=== PATIENT | male | born 1930 | race Caucasian/White ===

== ENCOUNTER 2018-03-29 08:45 | Inpatient (IN) ==
--- OUTSIDE RECORDS SUMMARY | 2018-03-29 09:09 | External Medical Summary | Summary of Care ---
:03/29/1948 Author Name Blaise Escoto M.D. Address [address] [facility] Unavailable [place], [place] [id number] Care Team Providers Name Role Phone Pavel Myers M.D. Unavailable Unavailable Naman Ngo, Freddy Haddad Unavailable Unavailable Pavel Myers Primary Care Provider Unavailable Unavailable Unavailable Unavailable Functional Status Functional Status Health Issues Name Dates Details Functional status health issues are not documented Status: Cognitive Status Health Issues Name Dates Details Cognitive status health issues are not documented Status: Problems Name Dates Details Encounter for screening for malignant neoplasm of prostate (V76.44, Z12.5) Status: Active Chest tightness or pressure (786.59, R07.89) Status: Active Blood in urine (599.70, R31.9) Status: Active Hyperkalemia (276.7, E87.5) Status: Active Depression (311, F32.9) Status: Active Myalgia and myositis (729.1, M79.1) Status: Active Orthostasis (458.0, I95.1) Status: Active Welcome to Medicare preventive visit (V70.0, Z00.00) Status: Active Needs flu shot (V04.81, Z23) Status: Active Dizziness (780.4, R42) Status: Active 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 Quantity: 30 Refills: 0 Pavel Myers M.D. Started ActiveFish Oil 1000 MG Oral Capsule TAKE 1 CAPSULE DAILY. Quantity: 90 Refills: 0 Pavel Myers M.D. Started ActiveAtorvastatin Calcium 80 MG Oral Tablet Take 1 tablet by mouth at bedtime Quantity: 90 Refills: 0 Pavel Myers M.D. Started 04-Oct-2009 ActiveZetia 10 MG Oral Tablet take 1 tablet by mouth every day Quantity: 90 Refills: 3 Freddy Florence M.D. Started 01-Jun-2009 ActiveLisinopril 20 MG Oral Tablet take one tablet by mouth every day Quantity: 14 Refills: 0 Pavel Myers M.D. Started 21-Sep-2009 ActiveNabumetone 500 MG Oral Tablet take 1 tablet by mouth every day in the morning Quantity: 90 Refills: 0 Pavel Myers M.D. Started 04-Sep-2011 ActiveCitalopram Hydrobromide 20 MG Oral Tablet TAKE 1 TABLET BY MOUTH DAILY Quantity: 90 Refills: 2 Pavel Myers M.D. Started 24-May-2012 ActiveMetoprolol Tartrate 25 MG Oral Tablet TAKE ONE-HALF (1/2) TABLET DAILY IN THE MORNING Quantity: 90 Refills: 1 Pavel Myers M.D. Started 13-Jun-2012 ActiveClopidogrel Bisulfate 75 MG Oral Tablet Take 1 tablet daily Quantity: 90 Refills: 1 Pavel Myers M.D. Started 10-Feb-2013 Active Allergies and Adverse Reactions Name Dates Details No Known Drug Allergies Status: Active Procedures Procedure Dates Details History of Cath Stent Placement Procedures not documented Immunization Name Dates Details Fluzone High-Dose Intramuscular Suspension Administered on:16-Jun-2014 Lot #: [id number] Adacel 5-2-15.5 LF-MCG/0.5 Intramuscular Suspension Administered on:2013 Lot #: [id number] Prevnar 13 Intramuscular Suspension Administered on:16-Jun-2014 Lot #: [id number] Family History Unknown Family Member Name Dates Details Family history of Family History Reviewed Comments: Family History Status: Active Social History Name Dates Details Tobacco use (305.1, Z72.0) Comments: smokes 1/2 ppd Smoking StatusCurrent every day smoker Vital Signs Date Test Result Details No Known Vitals to report Results Date Description Value Details Results not documented Plan of Care Planned Observations Name Dates Details Planned Goals not documented Goal Planned Encounters Appointment; Provider: Freddy Florence On 13:30 Instructions Instructions not documented Encounters Appointment; Blaise Escoto On 26-Apr-2015 Encounter Diagnosis: Problem not documented 10:00 Appointment; Leta Todd On 26-Apr-2015 Encounter Diagnosis: Problem not documented 09:30 Appointment; Freddy Florence On Encounter Diagnosis: Problem not documented 15:00 Appointment; Freddy Florence On Encounter Diagnosis: Problem not documented 14:15 Appointment; Pavel Myers On Encounter Diagnosis: Problem not documented 09:30 Appointment; Pavel Myers On 22-Sep-2014 Encounter Diagnosis: Problem not documented 10:15 Appointment; Pavel Myers On 16-Jun-2014 Encounter Diagnosis: Problem not documented 08:45 Appointment; Pavel Myers On 22-May-2014 Encounter Diagnosis: Problem not documented 10:45 Appointment; Pavel Myers On 15-May-2014 Encounter Diagnosis: Problem not documented 11:00 Appointment; Freddy Florence On Encounter Diagnosis: Problem not documented 13:30 Appointment; Pavel Myers On 17-Feb-2014 Encounter Diagnosis: Problem not documented 09:00 Appointment; Pavel Myers On 18-Aug-2013 Encounter Diagnosis: Problem not documented 08:15
--- OUTSIDE RECORDS SUMMARY | 2018-03-29 09:09 | External Medical Summary | Summary of Care ---
:03/29/1948 Author Name Pavel Myers M.D. 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 Started 21-Sep-2009 ActiveCitalopram Hydrobromide 20 MG Oral Tablet TAKE 1 TABLET BY MOUTH DAILY Quantity: 90 Refills: 2 Pavel Myers M.D. Started 24-May-2012 ActiveMetoprolol Tartrate 25 MG Oral Tablet TAKE ONE-HALF (1/2) TABLET DAILY IN THE MORNING Quantity: 90 Refills: 1 Pavel Myers M.D. Started 13-Jun-2012 ActiveClopidogrel Bisulfate 75 MG Oral Tablet Take 1 tablet daily Quantity: 90 Refills: 1 Pavel Myers M.D. Started 10-Feb-2013 ActiveNabumetone 500 MG Oral Tablet take 1 tablet by mouth every day in the morning Quantity: 90 Refills: 0 Pavel Myers M.D. Started 04-Sep-2011 Active Allergies and Adverse Reactions Name Dates Details No Known Drug Allergies Status: Active Procedures Procedure Dates Details History of Cath Stent Placement Procedures not documented Immunization Name Dates Details Fluzone High-Dose Intramuscular Suspension Administered on:16-Jun-2014 Lot #: [id number] Adacel 5-2-15.5 LF-MCG/0.5 Intramuscular Suspension Administered on:2013 Lot #: [id number] Prevnar 13 Intramuscular Suspension Administered on:16-Jun-2014 Lot #: [id number] Family History Unknown Family Member Name Dates Details Family history of Family History Reviewed Comments: Family History Status: Active Social History Name Dates Details Tobacco use (305.1, Z72.0) Comments: smokes 1/2 ppd Smoking StatusCurrent every day smoker Vital Signs Date Test Result Details No Known Vitals to report Results Date Description Value Details 26-Apr-2015 10:55 Colonoscopy Abnormal- Polyps (Better) Range: 0 Plan of Care Planned Observations Name Dates [...] Encounter Diagnosis: Problem not documented 09:00 Appointment; Pavle Myers On 18-Aug-2013 Encounter Diagnosis: Problem not documented 08:15
--- OUTSIDE RECORDS SUMMARY | 2018-03-29 09:09 | External Medical Summary | Summary of Care ---
:03/29/1948 Author Name Pavel Myers M.D. Address Unavailable Unavailable , Care Team Providers Name Role Phone Pavel Myers M.D. Unavailable Unavailable Freddy Florence M.D. Unavailable Unavailable Pavel Myers Unavailable Unavailable Unavailable Unavailable Unavailable Functional Status Functional [...] (311, F32.9) Status: Active Myalgia and myositis (729.1) Status: Active Orthostasis (458.0, I95.1) Status: Active Welcome to Medicare preventive visit (V70.0, Z00.00) Status: Active Needs flu shot (V04.81, Z23) Status: Active Peripheral arterial disease (443.9, I73.9) Status: Active CTS (carpal tunnel syndrome) (354.0, G56.00) Status: Active Encounter for screening colonoscopy (V76.51, Z12.11) Status: Active Colon polyps (211.3, K63.5) Status: Active Lesion of right parietal lobe of brain (348.89, G93.9) Status: Active Acute confusion (293.0, R41.0) Status: Active 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, I25.10) Status: Active Dizziness (780.4, R42) Status: Active 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 Quantity: 30 Refills: 0 Pavel Myers M.D. Start Active Fish Oil 1000 MG Oral Capsule TAKE 1 CAPSULE DAILY. Quantity: 90 Refills: 0 Pavel Myers M.D. Start Active Atorvastatin Calcium 80 MG Oral Tablet Take 1 tablet at bedtime Quantity: 90 Refills: 3 Pavel Myers M.D. Start 04-Oct-2009 Active Zetia 10 MG Oral Tablet take 1 tablet by mouth every day Quantity: 30 Refills: 0 Freddy Florence M.D. Start 01-Jun-2009 Active Lisinopril 20 MG Oral Tablet TAKE 1 TABLET EVERY DAY Quantity: 90 Refills: 0 Pavel Myers M.D. 19-Sep-2016 Active Citalopram Hydrobromide 20 MG Oral Tablet Take 1 tablet daily Quantity: 90 Refills: 0 Pavel Myers M.D. 19-Sep-2016 Active Metoprolol Tartrate 25 MG Oral Tablet TAKE ONE-HALF (1/2) TABLET DAILY IN THE MORNING Quantity: 90 Refills: 0 Pavel Myers M.D. 05-Aug-2016 Active Clopidogrel Bisulfate 75 MG Oral Tablet Take 1 tablet daily Quantity: 90 Refills: 2 Pavel Myers M.D. Start 07-Sep-2016 Active Meloxicam 7.5 MG Oral Tablet TAKE 1 TABLET TWICE DAILY WITH FOOD. Quantity: 10 Refills: 0 Pavel Myers M.D. Start 03-Jun-2015 Active Donepezil HCl - 10 MG Oral Tablet TAKE 1 TABLET DAILY DIRECTED. Quantity: 90 Refills: 3 Pavel Myers M.D. 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) Status: Resolved History of stroke (V12.54, Z86.73) Status: Resolved Procedures Procedure Dates Details History of Cath Stent Placement Procedures not documented Immunization Name Dates Details Fluzone High-Dose SUSP on: 16-Jun-2014 Lot #: [id number] Adacel 5-2-15.5 LF-MCG/0.5 Intramuscular Suspension on: 16-Jun-2014 Lot #: [id number] Prevnar 13 Intramuscular Suspension on: 16-Jun-2014 Lot #: [id number] Family History Unknown Family Member Name Dates Details Family history of Family History Reviewed Comments: Family History Status: Active Mother Name Dates Details Family history of rheumatoid arthritis (V17.7, Z82.61) Status: Active Father Name Dates Details Family history of cerebrovascular accident (CVA) (V17.1, Z82.3) Status: Active Family history of Carotid artery calcification (433.10, I65.29) Status: Active Social History Name Dates Details Tobacco use (305.1, Z72.0) Comments: smokes 1/2 ppd Status: Active Smoking Status Name Dates Details Current every day smoker Vital Signs Date Test Result Details 03-Oct-2016 09:55 BP Systolic 102 mm[Hg] Status: Comments: Location: ; Position: BP Diastolic 60 mm[Hg] Status: Comments: Location: ; Position: Height 70 in Status: Weight 153 lb Status: Body Mass Index Calculated 21.95 kg/m2 Status: Body Surface Area Calculated 1.86 m2 Status: Results Date Description Value Details 03-Oct-2016 09:45 CBC w/ Auto Diff 7150 Comments: Fastin hours WBC 7.2 K/uL Range: 4.5-11.0 RBC 5.01 mil/uL Range: 4.20-5.40 HGB 14.3 g/dL Range: 14.0-18.0 HCT 42.8 % Range: 42.0-53.0 MCV 85.5 fL Range: 80.0-99.0 MCH 28.5 pg Range: 27.3-32.5 MCHC 33.3 % Range: 32.0-36.0 RDW 14.7 % Range: 11.6-14.8 PLATELETS 253 K/uL Range: 150-400 MPV 7.1 fL Range: 6.0-11.0 %NEUTRO 60.1 % Range: 37.0-80.0 %LYMPHS 30.0 % Range: 13.0-50.0 %MONO 5.2 % Range: 0.0-12.0 %EOS 2.5 % Range: 0.0-7.0 %BASO 0.3 % Range: 0.0-2.5 %MAGED 1.8 % Range: 0.0-5.0 NEUTRO 4.3 K/uL Range: 2.0-6.9 LYMPHS 2.2 K/uL Range: 0.6-3.4 MONOS 0.4 K/uL Range: 0.0-0.9 EOS 0.2 K/uL Range: 0.0-0.7 BASO 0.0 K/uL Range: 0.0-0.2 10:16 Urinalysis, Reflex to Microscopic or Culture PRN Comments: Fastin hours 8005 pH 6.0 Range: 5.0-7.5 SP GRAVITY 1.025 Range: 1.010-1.030 APPEARANCE CLEAR Range: Clear COLOR YELLOW Range: Straw-Yellow PROTEIN NEGATIVE mg/dL Range: Negative-Trace GLUCOSE NEGATIVE mg/dL Range: Negative KETONE NEGATIVE mg/dL Range: Negative BILIRUB NEGATIVE Range: Negative BLOOD NEGATIVE Range: Negative UROBIL 0.2 EU/dL Range: 0.2-1.0 NITRITE NEGATIVE Range: Negative LEUK TRACE (Abnormal) Range: Negative 10:16 Urine Microscopic UMIC Comments: Fastin hours WBC 3-5 /HPF Range: 0-5 BACTERIA Trace /HPF Range: Negative-Trace U YEAST Present (Abnormal) Range: Absent 10:30 Comprehensive Metabolic Panel 1212 Comments: Fastin hours SODIUM 139 mmol/L Range: 133-144 POTASSIUM 4.7 mmol/L Range: 3.5-5.1 CHLORIDE 104 mmol/L Range: 98-110 CARBON DIOXIDE 25.0 mmol/L Range: 23.0-33.0 ANION GAP 10 mmol/L Range: 6-16 BUN 20 mg/dL (Above high Range: 7-18 threshold) CREATININE, SERUM 1.19 mg/dL Range: 0.70-1.30 BUN:CREATININE RATIO 17 EST GFR, >60 ml/min Range: >60 EST GFR, NON-AFR CITIZEN OF [place] >60 ml/min Range: >60 Comments: EST GFR is reported in ml/min per 1.73 m2 of body surface area. ----- GLUCOSE 97 mg/dL Range: 70-100 ALK PHOSPHATASE 60 U/L Range: 46-116 TOTAL BILIRUBIN 0.40 mg/dL Range: 0.20-1.00 AST 19 U/L Range: 8-35 ALT 28 U/L Range: 16-63 ALBUMIN 3.8 g/dL Range: 3.4-5.0 TOTAL PROTEIN 7.8 g/dL Range: 6.4-8.2 A/G RATIO 1.0 units Range: 1.0-1.8 CALCIUM 8.9 mg/dL Range: 8.5-10.1 10:30 LIPID PROFILE 1184 Comments: Fastin hours CHOLESTEROL 108 mg/dL Range: <200 TRIGLYCERIDES 40 mg/dL Range: 30-200 HDL Cholesterol 54 mg/dL Range: >39 NON HDL CHOLESTEROL 54 CARDIAC RSK FACTOR 2.0 units (Below low threshold) Range: 4.4-5.0 LDL - CALCULATED 46 mg/dL Range: 0-130 10:35 FREE T4 3604 Comments: Fastin hours FREE T4 1.25 ng/dL Range: 0.80-1.67 10:35 THYROID STIM. HORMONE 3602 Comments: Fastin hours THYROID STIM. HORMONE 3.274 uIU/mL Range: 0.550-4.780 Comments: No established reference ranges for infants and children &lt ;2 years of age----- 10:35 PSA ( PROSTATE SPECIFIC ANTIGEN) 3100 Comments: Fastin hours PROSTATE SPECIFIC ANTIGEN 0.590 ng/mL Range: 0.000-4.000 Plan of Care Name Dates Details Planned Observations Planned Goals not documented Planned Encounters Appointment; Provider: Freddy Florence M.D. On 07-Feb-2017 14:00 Appointment; Provider: Pavel Myers M.D. On 22-Nov-2016 10:30 Interventions Provided Medication ChangesAtorvastatin Calcium 80 MG Oral Tablet - RenewDonepezil HCl - 10 MG Oral Tablet - Renew Instructions Name Dates Details Instructions not documented Encounters Appointment; Freddy Florence M.D. On 27-Jul-2016 Encounter Diagnosis: Problem not documented 14:45 Appointment; Leland Sherman P.A. On Encounter Diagnosis: Problem not documented 11:00 Appointment; Freddy Florence M.D. On Encounter Diagnosis: Problem not documented 14:45 Appointment; Pavel Myers M.D. On Encounter Diagnosis: Problem not documented 16:00 Appointment; Pavel Myers M.D. On 21-Sep-2015 Encounter Diagnosis: Problem not documented 08:30 Appointment; Abhay Delaney M.D. On 14-Sep-2015 Encounter Diagnosis: Problem not documented 13:30 Appointment; Abhay Delaney M.D. On 09-Sep-2015 Encounter Diagnosis: Problem not documented 13:30 Appointment; Abhay Delaney M.D. On 24-Aug-2015 Encounter Diagnosis: Problem not documented 16:00 Appointment; Pavel Myers M.D. On 24-Aug-2015 Encounter Diagnosis: Problem not documented 09:00 Appointment; Blaise Escoto M.D. On 26-Apr-2015 Encounter Diagnosis: Problem not documented 10:00 Appointment; Leta Todd On 26-Apr-2015 Encounter Diagnosis: Problem not documented 09:30 Appointment; Freddy Florence M.D. On Encounter Diagnosis: Problem not documented 15:00 Appointment; Freddy Florence M.D. On Encounter Diagnosis: Problem not documented 14:15 Appointment; Pavel Myres M.D. On Encounter Diagnosis: Problem not documented 09:30
--- OUTSIDE RECORDS SUMMARY | 2018-03-29 09:10 | External Medical Summary | Summary of Care ---
:03/29/1948 Author Name Sohan Salazar D.P.T. Address [address] Unavailable [place], [place] [id number] Care Team Providers Name Role Phone Pavel Myers M.D. Unavailable Unavailable Tong Ngo, Freddy Gold Unavailable Unavailable Marie Damian, Sohan Unavailable Unavailable Naman Ngo, Freddy Haddad Unavailable Unavailable Rhett Ngo, Abhay Whaley Unavailable Unavailable Pavel Myers Unavailable Unavailable Unavailable [...] Blood in urine (599.70, R31.9) Status: Active Myalgia and myositis (729.1) Status: Active Welcome to Medicare preventive visit (V70.0, Z00.00) Status: Active Needs flu shot (V04.81, Z23) Status: Active Encounter for screening colonoscopy (V76.51, Z12.11) Status: Active Dizziness (780.4, R42) Status: Active Medicare annual wellness visit, subsequent (V70.0, Z00.00) Status: Active Cerebral vascular disease (437.9, I67.9) Status: Active Tobacco use (305.1, Z72.0) Status: Active Acute confusion (293.0, R41.0) Status: Active Mental status change (780.97, R41.82) Status: Active Confusion (298.9, R41.0) Status: Active Special screening for cancer of the respiratory organs (V76.0, Z12.2) Status : Active Dyslipidemia (272.4, E78.5) Status: Active 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, I25.10) Status: Active Peripheral arterial disease (443.9, I73.9) Status: Active Hypertension (401.9, I10) Status: Active Hyperkalemia (276.7, E87.5) Status: Active Depression (311, F32.9) Status: Active Orthostasis (458.0, I95.1) Status: Active CTS (carpal tunnel syndrome) (354.0, G56.00) Status: Active CAD (coronary atherosclerotic disease) (414.00, I25.10) Status: Active History of PTCA (V45.82, Z98.61) Status: Active Colon polyps (211.3, K63.5) Status: Active Homonymous hemianopsia, 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, 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 Lesion of right parietal lobe of brain (348.89, G93.9) Status: Active 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, 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: Active Cerebral arteriosclerosis with history of previous cerebrovascular accident ( 437.0, I67.2) Status: Active Laceration of head (873.8, S01.91XA) Status: Active Laceration of pinna (872.01, S01.319A) Status: Active 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 Quantity: 30 Refills: 0 Pavel Myers M.D. Active Fish Oil 1000 MG Oral Capsule TAKE 1 CAPSULE DAILY. Quantity: 90 Refills: 0 Pavel Myers M.D. Active Atorvastatin Calcium 80 MG Oral Tablet Take 1 tablet at bedtime Quantity: 90 Refills: 3 Pavel Myers M.D. Start 04-Oct-2009 Active Zetia 10 MG Oral Tablet take 1 tablet by mouth every day Quantity: 30 Refills: 0 Freddy Florence M.D. Start 01-Jun-2009 Active Citalopram Hydrobromide 20 MG Oral Tablet Take 1 tablet daily Quantity: 90 Refills: 3 Pavel Myers M.D. Start 18-Dec-2016 Active Metoprolol Tartrate 25 MG Oral Tablet TAKE ONE-HALF (1/2) TABLET DAILY IN THE MORNING Quantity: 90 Refills: 3 Pavel Myers M.D. Start 30-Jan-2017 Active Clopidogrel Bisulfate 75 MG Oral Tablet Take 1 tablet daily Quantity: 90 Refills: 2 Pavel Myers M.D. Start 07-Sep-2016 Active Meloxicam 7.5 MG Oral Tablet TAKE 1 TABLET TWICE A DAY WITH FOOD Quantity: 180 Refills: 1 Pavel Myers M.D. Start 27-Nov-2016 Active Supplies Speech Therapy: Evaluate and Treat. Quantity: 1 Refills: 0 Abhay Delaney M.D. Start 09-Jan-2017 Active Galantamine Hydrobromide ER 16 MG Oral Capsule Extended Release 24 Hour 1QD - TAKE ONE CAPSULE BY MOUTH EVERY DAY Quantity: 90 Refills: 3 Abhay Delaney M.D. Start 08-Feb-2017 Active Sulfamethoxazole-Trimethoprim 800-160 MG Oral Tablet Take 1 tablet twice daily Quantity: 20 Refills: 0 Freddy Fortune M.D. 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, 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) Status: Active CTS (carpal tunnel syndrome) (354.0, G56.00) Status: Active Depression (311, F32.9) Status: Active Dyslipidemia (272.4, E78.5) Status: Active History of PTCA (V45.82, Z98.61) Status: Active Homonymous hemianopsia, 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, 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 History of head injury (V15.59, Z87.828) Status: Resolved History of insect bite (V15.59, Z87.828) Status: Resolved History of low back pain (V13.59, Z87.39) Status: Resolved History of myocardial infarction (412, I25.2) Status: Resolved History of Neck pain (723.1, M54.2) Status: Resolved History of Numbness of right hand (782.0, R20.0) Status: Resolved History of Precancerous skin lesion (709.9, L98.9) Status: Resolved 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, 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) Status: Resolved History of stroke (V12.54, Z86.73) Status: Resolved History of 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8 f Status: Heart Rate 57 /min Status: Weight 145.5 lb Status: Physical Findings 96 Status: Comments: O2 Saturation Body Mass Index Calculated 20.88 kg/m2 Status: Body Surface Area Calculated 1.82 m2 Status: 11:14 BP Systolic 108 mm[Hg] Status: Comments: Location: ; Position: BP Diastolic 52 mm[Hg] Status: Comments: Location: ; Position: Weight 146 lb Status: Body Mass Index Calculated 20.95 kg/m2 Status: Body Surface Area Calculated 1.83 m2 Status: Results Date Description Value Details 15:55 CT Low Dose Lung Screening Comments: Exam Date: 02/26/2017 15:43Dictation Date: 02/26/2017 15:55 XC CHEST W/O FOR LUNG SCREEN Plan of Care Name Dates Details Planned Observations Planned Goals not documented Planned Encounters Appointment; Provider: Pavel Myers M.D. On 28-Jun-2017 10:30 Appointment; Provider: Abhay Delaney M.D. On 23-May-2017 10:45 Appointment; Provider: Keren ReneeTBradley On 11:30 Appointment; Provider: Ellie Sullivan P.T.A. On 11:00 Instructions Name Dates Details Instructions not documented Encounters Appointment; Ellie Sullivan P.TBradley On Encounter Diagnosis: Problem not documented 11:00 Appointment; Ellie Sullivan P.T.A. On Encounter Diagnosis: Problem not documented 11:00 Appointment; Ellie Sullivan P.T.A. On Encounter Diagnosis: Problem not documented 11:00 Appointment; Mg Watts M.D. On Encounter Diagnosis: Problem not documented 12:50 Appointment; aPvel Myers M.D. On Encounter Diagnosis: Problem not documented 11:00 Appointment; Ellie Sullivan, P.T.A. On 15-Feb-2017 Encounter Diagnosis: Problem not documented 11:00 Appointment; Ellie Sullivan P.T.A. On 13-Feb-2017 Encounter Diagnosis: Problem not documented 11:00 Appointment; Abhay Delaney M.D. On 08-Feb-2017 Encounter Diagnosis: Problem not documented 11:15 Appointment; Freddy Florence M.D. On 07-Feb-2017 Encounter Diagnosis: Problem not documented 14:00 Appointment; Ellie Sullivan P.T.A. On 07-Feb-2017 Encounter Diagnosis: Problem not documented 11:30 Appointment; Ellie Sullivan, P.T.A. On 05-Feb-2017 Encounter Diagnosis: Problem not documented 11:30 Appointment; Ellie Sullivan, P.T.A. On 31-Jan-2017 Encounter Diagnosis: Problem not documented 10:30 Appointment; Fermin Cisneros P.T. On 24-Jan-2017 Encounter Diagnosis: Problem not documented 10:30 Appointment; Fermin Cisneros P.T. On 16-Jan-2017 Encounter Diagnosis: Problem not documented 10:30 Appointment; Abhay Delaney M.D. On 08-Jan-2017 Encounter Diagnosis: Problem not documented 11:45 Appointment; Pavel Myers M.D. On 25-Dec-2016 Encounter Diagnosis: Problem not documented 15:00 Appointment; Pavel Myers M.D. On 22-Nov-2016 Encounter Diagnosis: Problem not documented 10:30 Appointment; Pavel Myers M.D. On 03-Oct-2016 Encounter Diagnosis: Problem not documented 10:15 Appointment; Freddy Florence M.D. On 27-Jul-2016 Encounter [...]
--- OUTSIDE RECORDS SUMMARY | 2018-03-29 09:10 | External Medical Summary | Summary of Care ---
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, I25.10) Status: Active Dizziness (780.4, R42) Status: Active Laceration of head (873.8, S01.91XA) Status: Active Laceration of pinna (872.01, S01.319A) Status: Active History of PTCA (V45.82, Z98.61) Status: Active Medicare annual wellness visit, subsequent (V70.0, Z00.00) Status: Active Cerebral vascular disease (437.9, I67.9) Status: Active Dyslipidemia (272.4, E78.5) Status: Active Osteoarthritis (715.90, M19.90) Status: Active Tobacco use (305.1, Z72.0) Status: Active CAD (coronary atherosclerotic disease) (414.00, I25.10) Status: Active Hypertension (401.9, I10) Status: Active Acute confusion (293.0, R41.0) Status: Active Mental status change (780.97, R41.82) Status: Active Lesion of right parietal lobe of brain (348.89, G93.9) Status: Active Confusion (298.9, R41.0) Status: Active Cerebral arteriosclerosis with history of previous cerebrovascular accident ( 437.0, I67.2) Status: Active 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 27-Nov-2016 Active Supplies Speech Therapy: Evaluate and Treat. Quantity: 1 Refills: 0 Rhett Ngo Abhay Jovana Zaldivar 09-Jan-2017 Active Galantamine Hydrobromide ER 16 MG Oral Capsule Extended Release 24 Hour 1QD - TAKE ONE CAPSULE BY MOUTH EVERY DAY Quantity: 15 Refills: 0 Rhett Ngo Abhay Jovana Zaldivar 08-Feb-2017 Active Allergies and Adverse Reactions Name Dates [...] Fluzone High-Dose SUSP on: 16-Jun-2014 Lot #: [id number] Adacel 5-2-15.5 LF-MCG/0.5 Intramuscular Suspension on: 16-Jun-2014 Lot #: [id number] Prevnar 13 Intramuscular Suspension on: 16-Jun-2014 Lot #: [id number] Family History Unknown Family Member Name Dates [...] smoker Vital Signs Date Test Result Details 08-Feb-2017 11:25 BP Systolic 124 mm[Hg] Status: Comments: Location: LUE; Position: Sitting BP Diastolic 66 mm[Hg] Status: Comments: Location: LUE; Position: Sitting Heart Rate 50 /min Status: Comments: Location: ; Weight 151.2 lb Status: Physical Findings 98 Status: Comments: O2 Saturation Body Mass Index Calculated 21.69 kg/m2 Status: Body Surface Area Calculated 1.85 m2 Status: Results Date Description Value Details Results not documented Plan of Care Name Dates Details Planned Observations Planned Goals not documented Planned Encounters Appointment; Provider: Abhay Delaney M.D. On 23-May-2017 10:45 Appointment; Provider: Pavel Myers M.D. On 10:30 Appointment; Provider: Ellie Sullivan P.T.A. On 15-Feb-2017 11:00 Appointment; Provider: Ellie Sullivan P.T.A. On 13-Feb-2017 11:00 Interventions Provided Medication ChangesDonepezil HCl - 10 MG Oral Tablet - StopGalantamine Hydrobromide ER 16 MG Oral Capsule Extended Release 24 Hour - Start Instructions Name Dates Details Instructions not documented Encounters Appointment; Freddy Florence M.D. On 07-Feb-2017 Encounter Diagnosis: Problem not documented 14:00 Appointment; Ellie Sullivan P.TBradley On 07-Feb-2017 Encounter Diagnosis: Problem not documented 11:30 Appointment; Ellie Sullivan P.TBradley On 05-Feb-2017 Encounter Diagnosis: Problem not documented 11:30 Appointment; Ellie Sullivan P.TBradley On 31-Jan-2017 Encounter Diagnosis: Problem not documented [...] Problem not documented 14:15 Appointment; Pavel Myers M.D. On Encounter Diagnosis: Problem not documented 09:30
--- OUTSIDE RECORDS SUMMARY | 2018-03-29 09:10 | External Medical Summary | Summary of Care ---
:03/29/1948 Author Name Fermin Cisneros P.T. Address [address] [facility] Unavailable [place], [place] [id number] Care Team Providers Name Role Phone Pavel Myers M.D. Unavailable Unavailable Tong Ngo, Freddy Gold Unavailable Unavailable Naman Ngo, Freddy Haddad Unavailable Unavailable Blayne Alvarez, Fermin Gold Unavailable Unavailable Rhett Ngo, Abhay Whaley Unavailable Unavailable Pavel Myers Unavailable Unavailable Unavailable Unavailable Functional Status Functional [...] E78.5) Status: Active Atherosclerotic heart disease of [place] coronary artery without angina pectoris (414.01, I25.10) [...] Quantity: 90 Refills: 3 Pavel Myers M.D. 04-Oct-2009 Active Zetia 10 MG Oral Tablet [...] Quantity: 90 Refills: 2 Pavel Myers M.D. 07-Sep-2016 Active Meloxicam 7.5 MG Oral Tablet TAKE 1 TABLET TWICE A DAY WITH FOOD Quantity: 180 Refills: 1 Pavel Myers M.D. 27-Nov-2016 Active Supplies Speech Therapy: Evaluate and Treat. Quantity: 1 Refills: 0 Abhay Delaney M.D. 09-Jan-2017 Active Galantamine Hydrobromide ER 16 MG [...] Name Dates Details Atherosclerotic heart disease of [place] coronary artery without angina pectoris (414.01, I25.10) [...] Fluzone High-Dose SUSP on: 16-Jun-2014 Lot #: [id number] Adacel 5-2-15.5 LF-MCG/0.5 Intramuscular Suspension on: 16-Jun-2014 Lot #: [id number] Prevnar 13 Intramuscular Suspension on: 16-Jun-2014 Lot #: [id number] Family History Unknown Family Member Name Dates [...] BP Systolic 118 mm[Hg] Status: Comments: Location: LUE; Position: Sitting BP Diastolic 68 mm[Hg] Status: Comments: Location: LUE; Position: Sitting Temperature 97.8 f Status: Heart Rate 57 /min Status: Comments: Location: ; Weight 145.5 lb Status: Physical Findings 96 Status: Comments: O2 Saturation Body Mass Index Calculated 20.88 kg/m2 Status: Body Surface Area Calculated 1.82 m2 Status: 11:14 BP Systolic 108 mm[Hg] Status: Comments: Location: ; Position: BP Diastolic 52 mm[Hg] Status: Comments: Location: ; Position: Weight 146 lb Status: Body Mass Index Calculated 20.95 kg/m2 Status: Body Surface Area Calculated 1.83 m2 Status: 08-Feb-2017 11:25 BP Systolic 124 mm[Hg] Status: Comments: Location: ; Position: BP Diastolic 66 mm[Hg] Status: Comments: Location: ; Position: Heart Rate 50 /min Status: Comments: Location: [...] Provider: Abhay Delaney M.D. On 23-May-2017 10:45 Instructions Name Dates Details Instructions not documented Encounters Appointment; Ellie Sullivan P.T.ADay On Encounter Diagnosis: Problem not documented 11:00 Appointment; Mg Watts M.D. On Encounter Diagnosis: Problem not documented 12:50 Appointment; Pavel Myers M.D. On Encounter Diagnosis: Problem not documented 11:00 Appointment; Ellie Sullivan P.T.ADay On 15-Feb-2017 Encounter Diagnosis: Problem not documented 11:00 Appointment; Ellie Sullivan P.T.A. On 13-Feb-2017 Encounter Diagnosis: Problem not documented 11:00 Appointment; Abhay Delaney M.D. On 08-Feb-2017 Encounter Diagnosis: Problem not documented 11:15 Appointment; Freddy Florence M.D. On 07-Feb-2017 Encounter Diagnosis: Problem not documented 14:00 Appointment; Ellie Sullivan P.T.ADay On 07-Feb-2017 Encounter Diagnosis: Problem not documented 11:30 Appointment; Ellie Sullivan P.T.ADay On 05-Feb-2017 Encounter Diagnosis: Problem not documented 11:30 Appointment; Ellie Sullivan P.T.ADay On 31-Jan-2017 Encounter Diagnosis: Problem not documented [...]
--- OUTSIDE RECORDS SUMMARY | 2018-03-29 09:10 | External Medical Summary | Summary of Care ---
:03/29/1948 Author Name Fermin Cisneros P.T. Address [address] [place], [place] [id number] Care Team Providers Name Role Phone Pavel Myers M.D. Unavailable Unavailable Naman Ngo, Freddy Haddad Unavailable Unavailable Fermin Cisneros P.T. 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) Status: Active Lesion of right parietal lobe of brain (348.89, G93.9) Status: Active Confusion (298.9, R41.0) Status: Active 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, 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 : Active 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 Quantity: 90 Refills: 3 Lucia NgoPavel J Start 03-Oct-2016 Active Supplies Speech Therapy: Evaluate and Treat. Quantity: 1 Refills: 0 Abhay Delaney M.D. Start 09-Jan-2017 Active Allergies and Adverse Reactions Name Dates [...] Fluzone High-Dose SUSP on: 16-Jun-2014 Lot #: [id number] Adacel 5-2-15.5 LF-MCG/0.5 Intramuscular Suspension on: 16-Jun-2014 Lot #: [id number] Prevnar 13 Intramuscular Suspension on: 16-Jun-2014 Lot #: [id number] Family History Unknown Family Member Name Dates [...] smoker Vital Signs Date Test Result Details 08-Jan-2017 11:47 BP Systolic 128 mm[Hg] Status: Comments: Location: LUE; Position: Sitting BP Diastolic 78 mm[Hg] Status: Comments: Location: LUE; Position: Sitting Heart Rate 63 /min Status: Comments: Location: ; Weight 146.2 lb Status: Physical Findings 95 Status: Comments: O2 Saturation Body Mass Index Calculated 20.98 kg/m2 Status: Body Surface Area Calculated 1.83 m2 Status: Results Date Description Value Details 01-Jan-2017 13:11 MRI BRAIN WITHOUT AND WITH Comments: Exam Date: 01/01/2017 10:40Dictation Date: 01/01/2017 13:11 CONTRAST X[facility] B[facility]IN WO[facility] ReportODILON FIGUEROA [id number] (X-RAY)PATIENT OF DR. MYERS BD: 03/29/1948 SECONDARY 01/01/17 XMR BRAIN WO/W NANDA XMR MULTIHANCE 10ML INDICATION: R41.82: ALTE Plan of Care Name Dates Details Planned Observations Planned Goals not documented Planned Encounters Appointment; Provider: Pavel Myers M.D. On 10:30 Appointment; Provider: Abhay Delaney M.D. On 08-Feb-2017 11:15 Appointment; Provider: Freddy Florence M.D. On 07-Feb-2017 14:00 Appointment; Provider: Fermin Cisneros P.T. On 31-Jan-2017 10:30 Instructions Name Dates Details Instructions not documented Encounters Appointment; Fermin Cisneros P.T. On 16-Jan-2017 Encounter [...]
--- OUTSIDE RECORDS SUMMARY | 2018-03-29 09:11 | External Medical Summary | Summary of Care ---
:03/29/1948 Author Name Fermin Cisneros P.T. Address [address] [place], [place] [id number] Care Team Providers Name Role Phone Pavel [...] K63.5) Status: Active Atherosclerotic heart disease of [place] coronary artery without angina pectoris (414.01, I25.10) [...] 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 Medications Name Dates Details Atorvastatin Calcium 80 MG Oral Tablet Take 1 tablet at bedtime Quantity: 90 Refills: 3 Pavel Myres M.D. 04-Oct-2009 Active Zetia 10 MG Oral Tablet take 1 tablet by mouth every day Quantity: 30 Refills: 0 Freddy Florence M.D. 01-Jun-2009 Active Citalopram Hydrobromide 20 MG Oral Tablet Take 1 tablet daily Quantity: 90 Refills: 3 Pavel Myers M.D. 18-Dec-2016 Active Metoprolol Tartrate 25 MG Oral Tablet TAKE ONE-HALF (1/2) TABLET DAILY IN THE MORNING Quantity: 90 Refills: 3 Pavel Myers M.D. 30-Jan-2017 Active Meloxicam 7.5 MG Oral Tablet TAKE 1 TABLET TWICE A DAY WITH FOOD Quantity: 180 Refills: 1 Pavel Myers M.D. 27-Nov-2016 Active Galantamine Hydrobromide ER 16 MG Oral Capsule Extended Release 24 Hour 1QD - TAKE ONE CAPSULE BY MOUTH EVERY DAY Quantity: 90 Refills: 3 Rhett NgoAbhay Jovana Start 08-Feb-2017 Active Clopidogrel Bisulfate 75 MG Oral Tablet Take 1 tablet daily Quantity: 90 Refills: 2 Lucia NgoPavel J Start 07-Sep-2016 Active Fish Oil 1000 MG Oral Capsule TAKE 1 CAPSULE DAILY. Quantity: 90 Refills: 0 Lucia Ngo Pavel Motta Start Active Aspirin 81 MG TABS TAKE 1 TABLET DAILY. Quantity: 30 Refills: 0 Lucia Ngo Pavel Motta Start Active Supplies Speech Therapy: Evaluate and Treat. Quantity: 1 Refills: 0 Rhett Ngo Abhay Whaley Start 09-Jan-2017 Active Allergies and Adverse Reactions [...] Fluzone High-Dose SUSP on: 16-Jun-2014 Lot #: [id number] Adacel 5-2-15.5 LF-MCG/0.5 Intramuscular Suspension on: 16-Jun-2014 Lot #: [id number] Prevnar 13 Intramuscular Suspension on: 16-Jun-2014 Lot #: [id number] Family History Unknown Family Member Name Dates [...] Provider: Keren ReneeTBradley On 11:30 Appointment; Provider: Pavel Myers M.D. On 11:00 Instructions Name Dates Details Instructions not documented Encounters Appointment; Ellie Sullivan PDayTBradley On 13-Feb-2017 Encounter Diagnosis: Problem not documented 11:00 Appointment; Abhay Delaney M.D. On 08-Feb-2017 Encounter Diagnosis: Problem not documented 11:15 Appointment; Freddy Florence M.D. On 07-Feb-2017 Encounter Diagnosis: Problem not documented 14:00 Appointment; Ellie Sullivan P.T.ADay On 07-Feb-2017 Encounter Diagnosis: Problem not documented 11:30 Appointment; Ellie Sullivan P.TBradley On 05-Feb-2017 Encounter Diagnosis: Problem not documented 11:30 Appointment; Ellie Sullivan PDayTDayADay On 31-Jan-2017 Encounter Diagnosis: Problem not documented [...] Encounter Diagnosis: Problem not documented 09:00 Appointment; Balise Escoto M.D. On 26-Apr-2015 Encounter Diagnosis: Problem not documented 10:00 Appointment; Leta Tdod On 26-Apr-2015 Encounter Diagnosis: Problem not documented 09:30 Appointment; Freddy Florence M.D. On Encounter Diagnosis: Problem not documented 15:00 Appointment; Freddy Florence M.D. On Encounter Diagnosis: Problem not documented 14:15 Appointment; Pavel Myers M.D. On Encounter Diagnosis: Problem not documented 09:30
--- OUTSIDE RECORDS SUMMARY | 2018-03-29 09:11 | External Medical Summary | Summary of Care ---
:03/29/1948 Author Name Pavel Myers M.D. 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 Start Active Triamcinolone Acetonide 0.1 % External Cream APPLY AND RUB IN A THIN FILM TO AFFECTED AREAS TWICE DAILY.(AM AND PM). Quantity: 15 Refills: 0 Mg Watts M.D. 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 On 23-May-2017 10:45 Appointment; Provider: Schedule Radiology On 16:00 Instructions Name Dates Details Instructions not documented Encounters Appointment; Ellie Sullivna P.T.ADay On 15-Feb-2017 Encounter Diagnosis: Problem not documented 11:00 Appointment; Ellie Sullivan, P.T.A. On 13-Feb-2017 Encounter Diagnosis: Problem not documented 11:00 Appointment; Abhay Delaney M.D. On 08-Feb-2017 Encounter Diagnosis: Problem not documented 11:15 Appointment; Freddy Florence M.D. On 07-Feb-2017 Encounter Diagnosis: Problem not documented 14:00 Appointment; Ellie Sullivan P.T.ADay On 07-Feb-2017 Encounter Diagnosis: Problem not documented 11:30 Appointment; Ellie Sullivan P.T.ADay On 05-Feb-2017 Encounter Diagnosis: Problem not documented 11:30 Appointment; Ellie Sullivan, P.T.ADay On 31-Jan-2017 Encounter Diagnosis: Problem not [...]
--- OUTSIDE RECORDS SUMMARY | 2018-03-29 09:11 | External Medical Summary | Summary of Care ---
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 On 07-Feb-2017 14:00 Appointment; Provider: Ellie Sullivan P.T.A. On 07-Feb-2017 11:30 Appointment; Provider: Ellie Sullivan P.T.A. On 05-Feb-2017 11:30 Instructions Name Dates Details Instructions not documented Encounters Appointment; Fermin Cisneros P.T. On 24-Jan-2017 Encounter [...]
--- OUTSIDE RECORDS SUMMARY | 2018-03-29 09:11 | External Medical Summary | Summary of Care ---
:03/29/1948 Author Name Freddy Florence M.D. Address [address] [place], [place] [id number] Care Team Providers Name Role Phone Pavel Myers M.D. Unavailable Unavailable Freddy Florence M.D. 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, I25.10) Status: Active Dyslipidemia (272.4, E78.5) Status: Active Dizziness (780.4, R42) Status: Active 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 Quantity: 30 Refills: 0 Pavel Myers M.D. Started ActiveFish Oil 1000 MG Oral Capsule TAKE 1 CAPSULE DAILY. Quantity: 90 Refills: 0 Pavel Myers M.D. Started ActiveAtorvastatin Calcium 80 MG Oral Tablet Take 1 tablet at bedtime Quantity: 10 Refills: 0 Pavel Myers M.D. Started 04-Oct-2009 ActiveZetia 10 MG Oral Tablet take 1 tablet by mouth every day Quantity: 30 Refills: 0 Freddy Florence M.D. Started 01-Jun-2009 ActiveLisinopril 20 MG Oral Tablet TAKE 1 TABLET EVERY DAY Quantity: 90 Refills: 3 Pavel Myers M.D. Started 21-Sep-2009 ActiveCitalopram Hydrobromide 20 MG Oral Tablet TAKE 1 TABLET BY MOUTH DAILY Quantity: 90 Refills: 3 Pavel Myers M.D. Started 24-May-2012 ActiveMetoprolol Tartrate 25 MG Oral Tablet TAKE ONE-HALF (1/2) TABLET DAILY IN THE MORNING Quantity: 90 Refills: 0 Pavel Myers M.D. Started 13-Jun-2012 ActiveClopidogrel Bisulfate 75 MG Oral Tablet Take 1 tablet daily Quantity: 90 Refills: 1 Pavel Myers M.D. Started 10-Feb-2013 ActiveMeloxicam 7.5 MG Oral Tablet TAKE 1 TABLET TWICE DAILY WITH FOOD. Quantity: 180 Refills: 3 Pavel Myers M.D. Started 03-Jun-2015 Active Allergies and Adverse Reactions Name Dates Details No Known Drug Allergies Status: Active Past Medical History Name Dates [...] High-Dose Intramuscular Suspension Administered on:16-Jun-2014 Lot #: [id number] Adacel 5-2-15.5 LF-MCG/0.5 Intramuscular Suspension Administered on:2013 Lot #: [id number] Prevnar 13 Intramuscular Suspension Administered on:16-Jun-2014 Lot #: [id number] Family History Unknown Family Member Name Dates [...] smoker Vital Signs Date Test Result Details 15:33 BP Systolic 104 mm[Hg] Status: BP Diastolic 54 mm[Hg] Status: Heart Rate 62 /min Status: Weight 159.125 lb Status: Body Mass Index Calculated 22.83 kg/m2 Status: Body Surface Area Calculated 1.89 m2 Status: 16:05 BP Systolic 104 mm[Hg] Status: BP Diastolic 56 mm[Hg] Status: Weight 161 lb Status: Body Mass Index Calculated 23.1 kg/m2 Status: Body Surface Area Calculated 1.9 m2 Status: Results Date Description Value Details Results not documented Plan of Care Planned Observations Name Dates Details Planned Goals not documented Goal Planned Encounters Appointment; Provider: Schedule Radiology On 31-Aug-2015 12:00 Appointment; Provider: Schedule Radiology On 31-Aug-2015 11:45 Appointment; Provider: Schedule Radiology On 31-Aug-2015 11:00 Instructions Instructions not documented Encounters Appointment; Freddy Florence On Encounter Diagnosis: Problem not documented 14:45 Appointment; Pavel Myers On Encounter Diagnosis: Problem not documented 16:00 Appointment; Pavel Myers On 21-Sep-2015 Encounter Diagnosis: Problem not documented 08:30 Appointment; Abhay Delaney On 14-Sep-2015 Encounter Diagnosis: Problem not documented 13:30 Appointment; Abhay Delaney On 09-Sep-2015 Encounter Diagnosis: Problem not documented 13:30 Appointment; Abhay Delaney On 24-Aug-2015 Encounter Diagnosis: Problem not documented 16:00 Appointment; Pavel Myers On 24-Aug-2015 Encounter Diagnosis: Problem not documented 09:00 Appointment; Blaise Escoto On 26-Apr-2015 Encounter Diagnosis: [...] Diagnosis: Problem not documented 08:45 Appointment; Pavel Myres On 22-May-2014 Encounter Diagnosis: Problem not documented 10:45 Appointment; Pavel Myers On 15-May-2014 Encounter Diagnosis: Problem not documented 11:00
--- OUTSIDE RECORDS SUMMARY | 2018-03-29 09:11 | External Medical Summary | Summary of Care ---
:03/29/1948 Author Name Abhay Delaney M.D. 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 Started 04-Oct-2009 ActiveZetia 10 [...] 90 Refills: 0 Pavel Myers M.D. Started 10-Feb-2013 ActiveMeloxicam 7.5 [...] Dates Details History of Cath Stent Placement CP Echo Ordered:25-Aug-2015 Immunization Name Dates Details Fluzone High-Dose Intramuscular Suspension Administered on:16-Jun-2014 Lot #: [id number] Adacel 5-2-15.5 LF-MCG/0.5 Intramuscular Suspension Administered on:2013 Lot #: [id number] Prevnar 13 Intramuscular Suspension Administered on:16-Jun-2014 Lot #: [id number] Family History Unknown Family Member Name Dates [...] smoker Vital Signs Date Test Result Details 14-Sep-2015 13:27 BP Systolic 126 mm[Hg] Status: BP Diastolic 72 mm[Hg] Status: Heart Rate 68 /min Status: Weight 165.4 lb Status: Body Mass Index Calculated 23.73 kg/m2 Status: Body Surface Area Calculated 1.93 m2 Status: 24-Aug-2015 16:13 BP Systolic 120 mm[Hg] Status: BP Diastolic 78 mm[Hg] Status: Heart Rate 66 /min Status: Height 70 in Status: Weight 161.2 lb Status: Body Mass Index Calculated 23.13 kg/m2 Status: Body Surface Area Calculated 1.9 m2 Status: 24-Aug-2015 09:01 BP Systolic 112 mm[Hg] Status: BP Diastolic 64 mm[Hg] Status: Weight 158 lb Status: Body Mass Index Calculated 22.67 kg/m2 Status: Body Surface Area Calculated 1.89 m2 Status: Results Date Description Value Details 24-Aug-2015 10:13 CT HEAD WITHOUT AND WITH Comments: Exam Date: 08/24/2015 09:42Dictation Date: 08/24/2015 10:13 IV CONTRAST XC HEAD (Better) 26-Aug-2015 10:36 CP Echo Y Linked PDF Report Available for Review by Clicking ImageLink Button (Better) 31-Aug-2015 12:13 ULTRASOUND CAROTID Comments: Exam Date: 08/31/2015 10: 49Dictation Date: 08/31/2015 12:13 XS CAROTID (Better) 12:15 X PRE SCREENING MRI (Better) Comments: Exam Date: 08/31/2015 11: 12Dictation Date: 08/31/2015 12:15 13:07 MRI BRAIN WITHOUT AND Comments: Exam Date: 08/31/2015 11: 12Dictation Date: 08/31/2015 13:07 WITH CONTRAST XMR BRAIN WO/W NANDA (Better) Plan of Care Planned Observations Name Dates Details Planned Goals not documented Goal Planned Encounters Appointment; Provider: Freddy Florence On 14:45 Appointment; Provider: Pavel Myers On 21-Sep-2015 08:30 Appointment; Provider: Schedule Radiology On 31-Aug-2015 12:00 Appointment; Provider: Schedule Radiology On 31-Aug-2015 11:45 Appointment; Provider: Schedule Radiology On 31-Aug-2015 11:00 Instructions Instructions not documented Encounters Appointment; Abhay Delaney On 14-Sep-2015 Encounter Diagnosis: [...]
--- OUTSIDE RECORDS SUMMARY | 2018-03-29 09:11 | External Medical Summary | Summary of Care ---
:03/29/1948 Author Name Freddy Florence M.D. Address [address] [place], [place] [id number] Care Team Providers Name Role Phone Pavel Myers M.D. 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 Quantity: 30 Refills: 0 Pavel Myers M.D. Started ActiveFish Oil 1000 MG Oral Capsule TAKE 1 CAPSULE DAILY. Quantity: 90 Refills: 0 aPvel Myers M.D. Started ActiveAtorvastatin Calcium 80 MG Oral Tablet Take 1 tablet by mouth at bedtime Quantity: 90 Refills: 0 Pavel Myers M.D. Started 04-Oct-2009 ActiveZetia 10 MG Oral Tablet take 1 tablet by mouth every day Quantity: 90 Refills: 2 Freddy Florence M.D. Started 01-Jun-2009 ActiveLisinopril 20 [...] Refills: 1 Pavel Myers M.D. Started 10-Feb-2013 ActivePEG-3350/Electrolytes 236 GM Oral Solution Reconstituted TAKE DIRECTED.Hold until patient request for colonoscopy Quantity: 1 Refills: 0 Blaise Escoto M.D. Started [id number] ML Bottle Allergies and Adverse Reactions Name Dates Details No Known Drug Allergies Status: Active Procedures Procedure Dates Details History of Cath Stent Placement Colonoscopy- Screening & Dx Ordered: Urinalysis, Reflex to Microscopic or Culture PRN 8005 Ordered: Immunization Name Dates Details Fluzone High-Dose Intramuscular Suspension Administered on:16-Jun-2014 Lot #: [id number] Adacel 5-2-15.5 LF-MCG/0.5 Intramuscular Suspension Administered on:2013 Lot #: [id number] Prevnar 13 Intramuscular Suspension Administered on:16-Jun-2014 Lot #: [id number] Family History Unknown Family Member Name Dates Details Family history of Family History Reviewed Comments: Family History Status: Active Social History Name Dates Details Tobacco use (305.1, Z72.0) Comments: smokes 1/2 ppd Smoking StatusCurrent every day smoker Vital Signs Date Test Result Details 14:39 BP Systolic 120 mm[Hg] Status: BP Diastolic 74 mm[Hg] Status: Heart Rate 62 /min Status: Weight 169.4 lb Status: Body Mass Index Calculated 24.31 kg/m2 Status: Body Surface Area Calculated 1.95 m2 Status: 08:58 BP Systolic 106 mm[Hg] Status: BP Diastolic 64 mm[Hg] Status: Weight 169 lb Status: Body Mass Index Calculated 24.25 kg/m2 Status: Body Surface Area Calculated 1.94 m2 Status: Results Date Description Value Details 09:02 CBC w/ Auto Diff 7150 Comments: Fastin hours WBC 8.0 K/uL (Better) Range: 4.5-11.0 RBC 5.09 mil/uL Range: 4.20-5.40 (Better) HGB 14.4 g/dL (Better) Range: 14.0-18.0 HCT 44.8 % (Better) Range: 42.0-53.0 MCV 88.1 fL (Better) Range: 80.0-99.0 MCH 28.3 pg (Better) Range: 27.3-32.5 MCHC 32.1 % (Better) Range: 32.0-36.0 RDW 13.8 % (Better) Range: 11.6-14.8 PLATELETS 241 K/uL (Better) Range: 150-400 MPV 7.0 fL (Better) Range: 6.0-11.0 %NEUTRO 55.0 % (Better) Range: 37.0-80.0 %LYMPHS 34.3 % (Better) Range: 13.0-50.0 %MONO 4.7 % (Better) Range: 0.0-12.0 %EOS 2.9 % (Better) Range: 0.0-7.0 %BASO 0.7 % (Better) Range: 0.0-2.5 %MAGED 2.5 % (Better) Range: 0.0-5.0 NEUTRO 4.4 K/uL (Better) Range: 2.0-6.9 LYMPHS 2.7 K/uL (Better) Range: 0.6-3.4 MONOS 0.4 K/uL (Better) Range: 0.0-0.9 EOS 0.2 K/uL (Better) Range: 0.0-0.7 BASO 0.1 K/uL (Better) Range: 0.0-0.2 09:14 Urinalysis, Reflex to Comments: Fastin hours Microscopic or Culture PRN 8005 pH 6.0 (Better) Range: 5.0-7.5 SP GRAVITY 1.010 (Better) Range: 1.010-1.030 APPEARANCE CLEAR (Better) Range: Clear COLOR YELLOW (Better) Range: Straw-Yellow PROTEIN NEGATIVE mg/dL Range: Negative-Trace (Better) GLUCOSE NEGATIVE mg/dL Range: Negative (Better) KETONE NEGATIVE mg/dL Range: Negative (Better) BILIRUB NEGATIVE (Better) Range: Negative BLOOD TRACE (Abnormal) Range: Negative UROBIL 0.2 EU/dL (Better) Range: 0.2-1.0 NITRITE NEGATIVE (Better) Range: Negative LEUK NEGATIVE (Better) Range: Negative 09:14 Urine Microscopic UMIC Comments: Fastin hours WBC 0 /HPF (Better) Range: 0-5 RBC 0-2 /HPF (Better) Range: 0-2 EPITH 0-2 /HPF (Better) Range: 0-10 09:29 Comprehensive Metabolic Comments: Fastin hours Panel 1212 SODIUM 135 mmol/L (Better) Range: 133-144 POTASSIUM 4.8 mmol/L (Better) Range: 3.5-5.1 CHLORIDE 100 mmol/L (Better) Range: 98-110 CARBON DIOXIDE 27.7 mmol/L Range: 23.0-33.0 (Better) ANION GAP 7 mmol/L (Better) Range: 6-16 BUN 22 mg/dL (Above Range: 7-18 high threshold) CREATININE, SERUM 1.26 mg/dL (Above Range: 0.55-1.02 high threshold) Comments: Please note new reference ranges effective 02/13.----- BUN:CREATININE RATIO 17 (Better) EST GFR, >60 ml/min Range: >60 (Better) EST GFR, NON-AFR [place] 57 ml/min (Below Range: >60 low threshold) Comments: EST GFR is reported in ml/min per 1.73 m2 of body surface area. For -[place], please multiple result by 1.2.----- GLUCOSE 102 mg/dL (Above Range: 70-100 high threshold) ALK PHOSPHATASE 65 U/L (Better) Range: 46-116 TOTAL BILIRUBIN 0.50 mg/dL (Better) Range: 0.20-1.00 AST 24 U/L (Better) Range: 8-35 ALT 31 U/L (Better) Range: 16-63 Comments: Please note new reference ranges. Effective 12/03/2014.----- ALBUMIN 3.7 g/dL (Better) Range: 3.4-5.0 TOTAL PROTEIN 7.3 g/dL (Better) Range: 6.4-8.2 A/G RATIO 1.0 units (Better) Range: 1.0-1.8 CALCIUM 9.0 mg/dL (Better) Range: 8.5-10.1 09:29 LIPID PROFILE 1184 Comments: Fastin hours CHOLESTEROL 117 mg/dL (Better) Range: <200 TRIGLYCERIDES 61 mg/dL (Better) Range: 30-200 HDL Cholesterol 39 mg/dL (Below low Range: >39 threshold) NON HDL CHOLESTEROL 78 (Better) CARDIAC RSK FACTOR 3.0 units (Below Range: 4.4-5.0 low threshold) LDL - CALCULATED 66 mg/dL (Better) Range: 0-130 09:29 CREATINE KINASE 1300 Comments: Fastin hours CREATINE KINASE 267 U/L (Better) Range: 39-308 09:39 FREE T4 3604 Comments: Fastin hours FREE T4 1.14 ng/dL (Better) Range: 0.80-1.67 09:39 PSA ( PROSTATE SPECIFIC Comments: Fastin hours ANTIGEN) 3100 PROSTATE SPECIFIC ANTIGEN 0.510 ng/mL Range: 0.000-4.000 (Better) 09:39 THYROID STIM. HORMONE Comments: Fastin hours 3602 THYROID STIM. HORMONE 2.687 uIU/mL Range: 0.550-4.780 (Better) Comments: \[id number]\No established reference ranges for infants and children <2 years of ageNo established reference ranges for infants and children <2 years of age----- Plan of Care Planned Observations Name Dates Details Planned Goals not documented Goal Planned Encounters Appointment; Provider: Blaise Escoto On 26-Apr-2015 07:30 Instructions Instructions not documented Encounters Appointment; Freddy [...] 18-Aug-2013 Encounter Diagnosis: Problem not documented 08:15 Appointment; Freddy Florence On Encounter Diagnosis: Problem not documented 14:30
--- OUTSIDE RECORDS SUMMARY | 2018-03-29 09:12 | External Medical Summary | Summary of Care ---
:03/29/1948 Author Name Fermin Cisneros P.T. 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, F03.90) Status: Active Peripheral arterial disease (443.9, I73.9) Status: Active Osteoarthritis (715.90, M19.90) Status: Active Orthostasis (458.0, I95.1) Status: Active Lesion of right parietal lobe of brain (348.89, G93.9) Status: Active Laceration of pinna (872.01, S01.319A) Status: Active Laceration of head (873.8, S01.91XA) Status: Active Hypertension (401.9, I10) Status: Active Hyperkalemia (276.7, E87.5) Status: Active Homonymous hemianopsia, 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, 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 History of PTCA (V45.82, Z98.61) Status: Active Dyslipidemia (272.4, E78.5) Status: Active Depression (311, F32.9) Status: Active CTS (carpal tunnel syndrome) (354.0, G56.00) Status: Active 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, I63.9) Status: Active Colon polyps (211.3, K63.5) Status: Active Chronic rhinitis (472.0, J31.0) Status: Active Cerebral arteriosclerosis with history of previous cerebrovascular accident ( 437.0, I67.2) Status: Active 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, 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: Active CAD (coronary atherosclerotic disease) (414.00, I25.10) Status: Active 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 On 28-Jun-2017 10:30 Appointment; Provider: Abhay Delaney M.D. On 23-May-2017 10:45 Appointment; Provider: Keren ReneeTBradley On 11:00 Instructions Name Dates Details Instructions not documented Encounters Appointment; Mg Watts M.D. On Encounter Diagnosis: Problem not documented 12:50 Appointment; Pavel Myers M.D. On Encounter Diagnosis: Problem not documented 11:00 Appointment; Ellie Sullivan P.T.ADay On 15-Feb-2017 Encounter Diagnosis: Problem not documented 11:00 Appointment; Ellie Sullivan P.T.ADay On 13-Feb-2017 Encounter Diagnosis: Problem not documented 11:00 Appointment; Abhay Delaney M.D. On 08-Feb-2017 Encounter Diagnosis: Problem not documented 11:15 Appointment; Freddy Florence M.D. On 07-Feb-2017 Encounter Diagnosis: Problem not documented 14:00 Appointment; Ellie Sullivan, P.T.ADay On 07-Feb-2017 Encounter Diagnosis: Problem not [...]
--- OUTSIDE RECORDS SUMMARY | 2018-03-29 09:12 | External Medical Summary | Summary of Care ---
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 Laceration of head (873.8, S01.91XA) Status: Active Laceration of pinna (872.01, S01.319A) Status: Active History of PTCA (V45.82, Z98.61) Status: Active Medicare annual wellness visit, subsequent (V70.0, Z00.00) Status: Active Cerebral vascular disease (437.9, I67.9) Status: Active Dyslipidemia (272.4, E78.5) Status: Active Osteoarthritis (715.90, M19.90) Status: Active Tobacco use (305.1, Z72.0) Status: Active Cerebral arteriosclerosis with history of previous cerebrovascular accident ( 437.0, I67.2) Status: Active CAD (coronary atherosclerotic disease) (414.00, I25.10) Status: Active Hypertension (401.9, I10) Status: Active Confusion (298.9, R41.0) Status: Active Acute confusion (293.0, R41.0) Status: Active Mental status change (780.97, R41.82) Status: Active 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 18-Dec-2016 Active Citalopram Hydrobromide 20 MG Oral Tablet Take 1 tablet daily Quantity: 90 Refills: 3 Pavel Myers M.D. 18-Dec-2016 Active Clopidogrel Bisulfate 75 MG Oral Tablet Take 1 tablet daily Quantity: 90 Refills: 2 Pavel Myers M.D. Start 07-Sep-2016 Active Donepezil HCl - 10 MG Oral Tablet TAKE 1 TABLET DAILY DIRECTED. Quantity: 90 Refills: 3 Pavel Myres M.D. Start 03-Oct-2016 Active Metoprolol Tartrate 25 MG Oral Tablet TAKE ONE-HALF (1/2) TABLET DAILY IN THE MORNING Quantity: 90 Refills: 0 Pavel Myers M.D. Start 05-Aug-2016 Active Meloxicam 7.5 MG Oral Tablet TAKE 1 TABLET TWICE A DAY WITH FOOD Quantity: 180 Refills: 1 Pavel Myers M.D. Start 27-Nov-2016 Active Allergies and Adverse Reactions Name Dates [...] Dates Details History of Cath Stent Placement MRI BRAIN WITHOUT AND WITH CONTRAST Ordered: 25-Dec-2016 Immunization Name Dates Details Fluzone High-Dose SUSP on: 16-Jun-2014 Lot #: [id number] Adacel 5-2-15.5 LF-MCG/0.5 Intramuscular Suspension on: 16-Jun-2014 Lot #: [id number] Prevnar 13 Intramuscular Suspension on: 16-Jun-2014 Lot #: [id number] Family History Unknown Family Member Name Dates [...] smoker Vital Signs Date Test Result Details 25-Dec-2016 15:04 BP Systolic 104 mm[Hg] Status: Comments: Location: ; Position: BP Diastolic 46 mm[Hg] Status: Comments: Location: ; Position: Weight 148 lb Status: Body Mass Index Calculated 21.24 kg/m2 Status: Body Surface Area Calculated 1.84 m2 Status: Results Date Description Value Details 25-Dec-2016 16:03 CBC w/ Auto Diff 7150 WBC 7.5 K/uL Range: 4.5-11.0 RBC 4.72 mil/uL Range: 4.20-5.40 HGB 13.7 g/dL (Below low threshold) Range: 14.0-18.0 HCT 42.7 % Range: 42.0-53.0 MCV 90.4 fL Range: 80.0-99.0 MCH 29.1 pg Range: 27.3-32.5 MCHC 32.2 % Range: 32.0-36.0 RDW 15.0 % (Above high threshold) Range: 11.6-14.8 PLATELETS 191 K/uL Range: 150-400 MPV 7.7 fL Range: 6.0-11.0 %NEUTRO 48.6 % Range: 37.0-80.0 %LYMPHS 39.3 % Range: 13.0-50.0 %MONO 6.1 % Range: 0.0-12.0 %EOS 3.3 % Range: 0.0-7.0 %BASO 0.4 % Range: 0.0-2.5 %MAGED 2.3 % Range: 0.0-5.0 NEUTRO 3.6 K/uL Range: 2.0-6.9 LYMPHS 2.9 K/uL Range: 0.6-3.4 MONOS 0.5 K/uL Range: 0.0-0.9 EOS 0.3 K/uL Range: 0.0-0.7 BASO 0.0 K/uL Range: 0.0-0.2 16:10 Urinalysis, Reflex to Microscopic or Culture PRN 8005 pH 5.5 Range: 5.0-7.5 SP GRAVITY 1.020 Range: 1.010-1.030 APPEARANCE CLEAR Range: Clear COLOR YELLOW Range: Straw-Yellow PROTEIN NEGATIVE mg/dL Range: Negative-Trace GLUCOSE NEGATIVE mg/dL Range: Negative KETONE NEGATIVE mg/dL Range: Negative BILIRUB NEGATIVE Range: Negative BLOOD SMALL (Abnormal) Range: Negative UROBIL 1.0 EU/dL Range: 0.2-1.0 NITRITE NEGATIVE Range: Negative LEUK NEGATIVE Range: Negative 16:10 Urine Microscopic UMIC WBC 0-2 /HPF Range: 0-5 RBC 3-5 /HPF (Abnormal) Range: 0-2 16:28 Comprehensive Metabolic Panel 1212 SODIUM 140 mmol/L Range: 133-144 POTASSIUM 4.2 mmol/L Range: 3.5-5.1 CHLORIDE 103 mmol/L Range: 98-110 CARBON DIOXIDE 29.6 mmol/L Range: 23.0-33.0 ANION GAP 7 mmol/L Range: 6-16 BUN 24 mg/dL (Above high Range: 7-18 threshold) CREATININE, SERUM 1.15 mg/dL Range: 0.70-1.30 BUN:CREATININE RATIO 21 EST GFR, >60 ml/min Range: >60 EST GFR, NON-AFR [place] >60 ml/min Range: >60 Comments: EST GFR is reported in ml/min per 1.73 m2 of body surface area. ----- GLUCOSE 85 mg/dL Range: 70-100 ALK PHOSPHATASE 68 U/L Range: 46-116 TOTAL BILIRUBIN 0.30 mg/dL Range: 0.20-1.00 AST 25 U/L Range: 8-35 ALT 27 U/L Range: 16-63 ALBUMIN 3.9 g/dL Range: 3.4-5.0 TOTAL PROTEIN 6.9 g/dL Range: 6.4-8.2 A/G RATIO 1.3 units Range: 1.0-1.8 CALCIUM 9.1 mg/dL Range: 8.5-10.1 16:39 THYROID STIM. HORMONE 3602 THYROID STIM. HORMONE 2.289 uIU/mL Range: 0.550-4.780 Comments: No established reference ranges for infants and children &lt ;2 years of age----- Plan of Care Name Dates Details Planned Observations Planned Goals not documented Planned Encounters Appointment; Provider: Pavel Myers M.D. On 10:30 Appointment; Provider: Freddy Florence M.D. On 07-Feb-2017 14:00 Appointment; Provider: Schedule Radiology On 01-Jan-2017 11:00 Interventions Provided Labs/Procedures/ImagingMRI BRAIN WITHOUT AND WITH CONTRAST; To be Done: 25 Dec 2016[facility] w/ Auto Diff 7150; Done: Dec 25 2016 3:47PMComprehensive Metabolic Panel 1212; Done: Dec 25 2016 3:47PMTHYROID STIM. HORMONE 3602; Done: Dec 25 2016 3:47PMUrinalysis, Reflex to Microscopic or Culture PRN 8005; Done: Dec 25 2016 3:47PM Instructions Name Dates Details Instructions not documented Encounters Appointment; Pavel Myers M.D. On 22-Nov-2016 Encounter [...] Diagnosis: Problem not documented 08:30 Appointment; Abhay Delnaey M.D. On 14-Sep-2015 Encounter Diagnosis: Problem not [...]
--- OUTSIDE RECORDS SUMMARY | 2018-03-29 09:12 | External Medical Summary | Summary of Care ---
:03/29/1948 Author Name Pavel Myers M.D. 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, I25.10) [...] High-Dose Intramuscular Suspension Administered on:16-Jun-2014 Lot #: [id number] Adacel 5-2-15.5 LF-MCG/0.5 Intramuscular Suspension Administered on:2013 Lot #: [id number] Prevnar 13 Intramuscular Suspension Administered on:16-Jun-2014 Lot #: [id number] Family History Unknown Family Member Name Dates [...] smoker Vital Signs Date Test Result Details 16:05 BP Systolic 104 mm[Hg] Status: BP Diastolic 56 mm[Hg] Status: Weight 161 lb Status: Body Mass Index Calculated 23.1 kg/m2 Status: Body Surface Area Calculated 1.9 m2 Status: Results Date Description Value Details Results not documented Plan of Care Planned Observations Name Dates Details Planned Goals not documented Goal Planned Encounters Appointment; Provider: Freddy Florence On 14:45 Appointment; Provider: Schedule Radiology On 31-Aug-2015 12:00 Appointment; Provider: Schedule Rad[facility] On 31-Aug-2015 11:45 Appointment; Provider: Schedule Radiology On 31-Aug-2015 11:00 Instructions Instructions not documented Encounters Appointment; Pavel Myers On Encounter Diagnosis: Problem [...]
--- OUTSIDE RECORDS SUMMARY | 2018-03-29 09:13 | External Medical Summary | Summary of Care ---
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 Start 27-Nov-2016 Active Donepezil HCl - 10 [...] Dates Details History of Cath Stent Placement CBC w/ Auto Diff 7150 Ordered: 25-Dec-2016 Comprehensive Metabolic Panel 1212 Ordered: 25-Dec-2016 THYROID STIM. HORMONE 3602 Ordered: 25-Dec-2016 Urinalysis, Reflex to Microscopic or Culture PRN 8005 Ordered: 25-Dec-2016 MRI BRAIN WITHOUT AND WITH CONTRAST Ordered: 25-Dec-2016 Immunization Name Dates Details Fluzone High-Dose SUSP on: 16-Jun-2014 Lot #: [id number] Adacel 5-2-15.5 LF-MCG/0.5 Intramuscular Suspension on: 16-Jun-2014 Lot #: [id number] Prevnar 13 Intramuscular Suspension on: 16-Jun-2014 Lot #: [id number] Family History Unknown Family Member Name Dates [...] Provider: Freddy Florence M.D. On 07-Feb-2017 14:00 Interventions Provided Labs/Procedures/ImagingCBC w/ Auto Diff 7150; To be Done: 25 Dec 2016Comprehensive Metabolic Panel 1212; To be Done: 25 Dec 2016MRI BRAIN WITHOUT AND WITH CONTRAST; To be Done: 25 Dec 2016THYROID STIM. HORMONE 3602; To be Done: 25 Dec 2016Urinalysis, Reflex to Microscopic or Culture PRN 8005; To be Done: 25 Dec 2016 Instructions Name Dates Details Instructions not documented [...]
--- OUTSIDE RECORDS SUMMARY | 2018-03-29 09:13 | External Medical Summary | Summary of Care ---
:03/29/1948 Author Name Pavel Myers M.D. Address [address] [place], [place] [id number] Care Team Providers Name Role Phone Pavel [...] E78.5) Status: Active Atherosclerotic heart disease of [place] coronary artery without angina pectoris (414.01, I25.10) [...] 13-Jun-2012 ActiveClopidogrel Bisulfate 75 MG Oral Tablet TAKE 1 TABLET BY MOUTH DAILY Quantity: 90 Refills: 1 Pavel Myers M.D. Started 10-Feb-2013 Active Allergies and Adverse Reactions Name Dates Details No Known Drug Allergies Status: Active Procedures Procedure Dates Details History of Cath Stent Placement Colonoscopy- Screening & Dx Pendin Urinalysis, Reflex to Microscopic or Culture PRN 8005 Ordered: FREE T4 3604 Ordered:12-Feb-2015 PSA ( PROSTATE SPECIFIC ANTIGEN) 3100 Ordered:12-Feb-2015 THYROID STIM. HORMONE 3602 Ordered:12-Feb-2015 Immunization Name Dates Details Fluzone High-Dose Intramuscular Suspension Administered on:16-Jun-2014 Lot #: [id number] Adacel 5-2-15.5 LF-MCG/0.5 Intramuscular Suspension Administered on:2013 Lot #: [id number] Prevnar 13 Intramuscular Suspension Administered on:16-Jun-2014 Lot #: [id number] Family History Unknown Family Member Name Dates Details Family history of Family History Reviewed Comments: Family History Status: Active Social History Name Dates Details Tobacco use (305.1, Z72.0) Comments: smokes 1/2 ppd Smoking StatusCurrent every day smoker Vital Signs Date Test Result Details 08:58 BP Systolic 106 mm[Hg] Status: BP Diastolic 64 mm[Hg] Status: Weight 169 lb Status: Body Mass Index Calculated 24.25 kg/m2 Status: Body Surface Area Calculated 1.94 m2 Status: Results Date Description Value Details 09:02 CBC w/ Auto Diff 7150 Comments: Fastin hours WBC 8.0 K/uL (Better) Range: 4.5-11.0 RBC 5.09 mil/uL (Better) Range: 4.20-5.40 HGB 14.4 g/dL (Better) Range: 14.0-18.0 HCT [...] (Better) Range: 98-110 CARBON DIOXIDE 27.7 mmol/L (Better) Range: 23.0-33.0 ANION GAP 7 mmol/L (Better) Range: 6-16 BUN 22 mg/dL (Above high Range: 7-18 threshold) CREATININE, SERUM 1.26 mg/dL (Above Range: 0.55-1.02 high threshold) Comments: Please note new reference ranges effective 02/13.----- BUN:CREATININE RATIO 17 (Better) EST GFR, >60 ml/min Range: >60 (Better) EST GFR, NON-AFR KENYAN 57 ml/min (Below low Range: >60 threshold) Comments: EST GFR is reported in ml/min per 1.73 m2 of body surface area. For -L[place]uanian, please multiple result by 1.2.----- GLUCOSE 102 [...] (Better) CARDIAC RSK FACTOR 3.0 units (Below low Range: 4.4-5.0 threshold) LDL - CALCULATED 66 mg/dL (Better) Range: 0-130 09:29 CREATINE KINASE 1300 Comments: Fastin hours CREATINE KINASE 267 U/L (Better) Range: 39-308 Plan of Care Planned Observations Name Dates Details Planned Goals not documented Goal Planned Encounters Appointment; Provider: Freddy Florence On 14:15 Instructions Instructions not documented Encounters Appointment; Pavel [...]
--- OUTSIDE RECORDS SUMMARY | 2018-03-29 09:13 | External Medical Summary | Summary of Care ---
:03/29/1948 Author Name Pavel Myers M.D. 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 Started 13-Jun-2012 ActiveMeloxicam 7.5 MG Oral Tablet TAKE 1 TABLET TWICE DAILY WITH FOOD. Quantity: 180 Refills: 3 Pavel Myers M.D. Started 03-Jun-2015 ActiveClopidogrel Bisulfate 75 MG Oral Tablet Take 1 tablet daily Quantity: 90 Refills: 0 Pavel Myers M.D. Started 10-Feb-2013 Active Allergies [...] of Cath Stent Placement CP Echo Ordered:25-Aug-2015 MRI BRAIN WITHOUT AND WITH CONTRAST Ordered:25-Aug-2015 ULTRASOUND CAROTID Ordered:25-Aug-2015 Immunization Name Dates Details Fluzone High-Dose Intramuscular Suspension Administered on:16-Jun-2014 Lot #: [id number] Adacel 5-2-15.5 LF-MCG/0.5 Intramuscular Suspension Administered on:2013 Lot #: [id number] Prevnar 13 Intramuscular Suspension Administered on:16-Jun-2014 Lot #: [id number] Family History Unknown Family Member Name Dates [...] smoker Vital Signs Date Test Result Details 24-Aug-2015 16:13 BP Systolic 120 mm[Hg] Status: [...] for Review by Clicking ImageLink Button (Better) Plan of Care Planned Observations Name Dates Details Planned Goals not documented Goal Planned Encounters Appointment; Provider: Freddy Florence On 14:45 Appointment; Provider: Pavel Myers On 21-Sep-2015 08:30 Appointment; Provider: Abhay Delaney On 14-Sep-2015 13:30 Appointment; Provider: Abhay Delaney On 09-Sep-2015 13:30 Appointment; Provider: Schedule Radiology On 31-Aug-2015 12:00 Appointment; Provider: Schedule Radiology On 31-Aug-2015 11:45 Appointment; Provider: Schedule Radiology On 31-Aug-2015 11:00 Instructions Instructions not documented Encounters Appointment; Abhay Delaney On 24-Aug-2015 Encounter Diagnosis: [...]
--- OUTSIDE RECORDS SUMMARY | 2018-03-29 09:13 | External Medical Summary | Summary of Care ---
:03/29/1948 Author Name Pavel Myers M.D. Address [address] [place], [place] [id number] Care Team Providers Name Role Phone Pavel [...] Status: Active Dizziness (780.4, R42) Status: Active Tobacco use (305.1, Z72.0) Status: Active Dyslipidemia (272.4, E78.5) Status: Active Hypertension (401.9, I10) Status: Active Peripheral arterial disease (443.9, I73.9) Status: Active Atherosclerotic heart disease of [place] coronary artery without angina pectoris (414.01, I25.10) Status: Active Medications Name Dates Details Aspirin [...] Refills: 1 Pavel Myers M.D. Started 10-Feb-2013 ActiveFerrous Sulfate 324 (65 Fe) MG Oral Tablet Delayed Release as directed Refills: 0 Pavel Myers M.D. Started 16-Jun-2014 Active Allergies and Adverse Reactions Name Dates Details No Known Drug Allergies Status: Active Procedures Procedure Dates Details History of Cath Stent Placement CBC w/ Auto Diff 7150 Ordered:12-Feb-2015 Comprehensive Metabolic Panel 1212 Ordered:12-Feb-2015 FREE T4 3604 Ordered:12-Feb-2015 LIPID PROFILE 1184 Ordered:12-Feb-2015 PSA ( PROSTATE SPECIFIC ANTIGEN) 3100 Ordered:12-Feb-2015 THYROID STIM. HORMONE 3602 Ordered:12-Feb-2015 Urinalysis, Reflex to Microscopic or Culture PRN 8005 Ordered:12-Feb-2015 CREATINE KINASE 1300 Ordered:12-Feb-2015 Immunization Name Dates Details Fluzone High-Dose Intramuscular Suspension Administered on:16-Jun-2014 Lot #: [id number] Adacel 5-2-15.5 LF-MCG/0.5 Intramuscular Suspension Administered on:2013 Lot #: [id number] Prevnar 13 Intramuscular Suspension Administered on:16-Jun-2014 Lot #: [id number] Family History Unknown Family Member Name Dates [...] Encounters Appointment; Provider: Freddy Florence On 14:15 Appointment; Provider: Pavel Myers On 09:30 Instructions Instructions not documented Encounters Appointment; Pavel Myers On 22-Sep-2014 Encounter Diagnosis: [...]
--- NOTE | 2018-03-29 09:37 | Emergency Department Report ---
Medical Clearance HPI - General Chief complaint: Medical Clearance Stated complaint: [facility] Clearance Time Seen by Provider: 03/29/18 09:00 Source: patient, family, RN notes reviewed, old records reviewed, other ( [facility] intake form) Mode of arrival: ambulatory Limitations: no limitations - History of Present Illness HPI Narrative: 88yo man presented to the ER for evaluation of medical clearance. Pt has been preliminarily accepted to [facility] for paranoid delusions, visual hallucinations, and decreased functioning related to his dementia. MD complaint: medical clearance requested Onset (ago): month(s) Place: home Alleged Intoxication: No Compliant with Home Medications: No Traumatic Symptoms: denies traumatic injury Associated Symptoms: denies other symptoms Treatments Prior to Arrival: none Home medications: Home Medications Medication Instructions Recorded Confirmed Zestril (lisinopril) 40 mg tablet 40 mg PO DAILY tab 01/07/18 03/29/18 dihydroxyaluminum sod carb 334 mg 668 mg PO DAILY PRN tab 01/07/18 03/29/18 chewable tablet Doxazosin [Cardura] 4 mg PO HS 03/29/18 03/29/18 Previous Rx's Medication Instructions Recorded sotalol 80 mg tablet 80 mg PO BID #90 tab 12/07/17 Aldactone (spironolactone) 25 mg 25 mg PO QAM #90 tab 12/10/17 tablet aspirin 325 mg tablet 325 mg PO DAILY #1 tab 12/17/17 Glucophage (metformin) 1,000 mg 1,000 mg PO BID #1 tab 01/15/18 tablet Cyanocobalamin (B-12) [Vit. B-12] 1,000 mcg PO DAILY tab 04/04/18 RisperiDONE [RisperDAL] 0.5 mg PO 0900,1730 30 Days #60 tab 04/04/18 Allergies/Adverse reactions: Allergies Allergy/AdvReac Type Severity Reaction Status Date / Time cephalexin Allergy Unknown PT DENIES Verified 03/29/18 08:50 erythromycin base Allergy Unknown PT DENIES Verified 03/29/18 08:50 rivaroxaban [From Xarelto] AdvReac Verified 03/29/18 08:50 Review of Systems All systems: reviewed and negative PFSH Patient Stated Medical History Cerebrovascular Accident Yes: 2002, right side arm weakness Cataracts Yes Other HEENT Yes: wears glasses Cardiac Arrhythmia Yes: afib Asthma Yes: 1960 Diabetes Mellitus Type 2 Yes Osteoarthritis Yes Clinic Medical History (Last Updated 05/11/17 @ 08:55 by MARCO A Kemp) CVA (cerebral vascular accident) (Chronic Medical) Edema (Chronic Medical) Type 2 diabetes mellitus (Chronic Medical) BPH (benign prostatic hyperplasia) (Chronic Medical) Hypertension (Chronic Medical) Surgical History: turp - Social History Smoking status: Never smoker Substance use type: does not use Alcohol intake frequency: does not drink Physical Exam - Limitations Limitations: no limitations - General General appearance: alert, in no apparent distress - Head Head exam: atraumatic, normocephalic, normal inspection - Eye Eye exam: Present: normal appearance, PERRL, EOMI. Absent: scleral icterus - ENT ENT exam: Present: normal exam, normal oropharynx, mucous membranes moist, TM's normal bilaterally, normal external ear exam - Neck Neck exam: Present: normal inspection, full ROM, trachea midline. Absent: tenderness, lymphadenopathy - Chest Chest inspection: Present: normal inspection, symmetric chest wall rise. Absent : tenderness, rash - Respiratory Respiratory exam: Present: normal lung sounds bilaterally. Absent: respiratory distress, wheezes, stridor, prolonged expiratory phase, crackles - Cardiovascular Cardiovascular exam: Present: regular rate, normal rhythm, normal heart sounds. Absent: rubs, gallop, clicks - Abdominal Exam Abdominal exam: Present: soft, normal bowel sounds. Absent: distention, tenderness, guarding, rebound, rigidity - Extremities Exam Extremities exam: Present: normal inspection, full ROM, normal capillary refill. Absent: tenderness, pedal edema - Skin Skin exam: Present: warm, dry, intact. Absent: rash - Neurological Exam Neurological exam: Present: alert, oriented X3, CN II-XII intact, reflexes normal. Absent: normal gait - Psychiatric Psychiatric exam: Present: flat affect Course - Consultations Consultation #1: [facility]: Pt accepted for admission to [facility]. Will collect the pt. Time: 10:43 Vital Signs Temperature 98 F 03/29/18 08:48 Pulse Rate 92 03/29/18 08:48 Respiratory Rate 24 03/29/18 08:48 Blood Pressure 164/88 H 03/29/18 08:48 Pulse Oximetry 97 03/29/18 08:48 Temperature 98 F 03/29/18 08:48 Pulse Rate 92 03/29/18 08:48 Respiratory Rate 24 03/29/18 08:48 Blood Pressure 164/88 H 03/29/18 08:48 Pulse Oximetry 97 03/29/18 08:48 Medical Clearance - MDM Narrative Medical decision making narrative: Pt without significant abns on Hx, PE, labs, or rads. Still awaiting UDS, but unlikely to alter disposition. [facility] contacted for placement. - Differential Diagnosis Differential Diagnosis Narrative: Dementia, delirium, UTI, hypoglycemia - Medical Records Attestation: I reviewed the patient's medical records. - Lab Data Attestation: I reviewed the patient's lab results. Result diagrams: 03/29/18 09:51 03/29/18 09:51 - Radiology Data Attestation: I reviewed the patient's radiology results. CXR: IMPRESSION: Stable appearance of the chest without acute cardiopulmonary disease. Disposition Clinical Impression: Dementia Qualifiers: Dementia type: unspecified type Dementia behavioral disturbance: with behavioral disturbance Qualified Code(s): F03.91 - Unspecified dementia with behavioral disturbance Disposition: 66 [place] [facility] Condition: Stable Time of Disposition: 10:50 - Seen By: physician
--- NOTE | 2018-03-29 09:41 | XRay Report ---
Indication: medical clearance PROCEDURE: XR chest 1V: Encounter: Initial Comparison: May 20, 2017 Findings: Patient is rotated. The lungs are stable in appearance without new focal airspace consolidation. There is no pleural effusion or pneumothorax. The heart size, pulmonary vascularity and mediastinal contours are unchanged. IMPRESSION: Stable appearance of the chest without acute cardiopulmonary disease. .
[2018-03-29] MEDS ORDERED: LORazepam 0.5 MG TABLET PO PRN (12:21)
[2018-03-29] MEDS ORDERED: HALOPERIDOL 0.5 MG TABLET PO PRN (12:21)
[2018-03-29] MEDS ORDERED: HALOPERIDOL 5 MG/ML INJECTION IM PRN (12:21)
[2018-03-29] MEDS ORDERED: CALCIUM CARBONATE Chewable 750mg TABLET PO PRN (12:23)
[2018-03-29 12:31] VITALS: BMI 27.3
[2018-03-29] MEDS: ASPIRIN 325 MG TABLET PO SCH (13:29)
[2018-03-29] MEDS: METFORMIN 1,000 MG TABLET PO SCH ×2 (13:29→20:06)
[2018-03-29] MEDS: LISINOPRIL 40 MG TABLET PO SCH (13:29)
[2018-03-29] MEDS: SPIRONOLACTONE 25 MG TABLET PO SCH (13:30)
--- NOTE | 2018-03-29 15:24 | History & Physical Report ---
History of Present Illness Date: 03/29/18 Chief complaint: Behavioral changes HPI: Mr. Packer is an 88 y/o male who had been residing at home, while his is at [facility]. Per report, he has been having paranoid thoughts, thinking that his is flirting and behaving inconspicuously with other residents at [facility]. He was medically cleared in the ED prior to admission to [facility]. He was dx with A- fib in Apr, 2017 and was prescribed Eliquis but pt has been refusing despite education. 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 Per PCP's notes, there is concern that he is not taking medications as Rx since his A1c has been climbing and is currently 9%. Mr. Packer reports that he has had 2 falls in the last couple of weeks d/t losing his balance. He ambulates with a walker. He denies any significant injury other than bruising to his arms -- he tends to bruise easily at baseline. He states that his legs are always swollen and since his stroke his right leg has been more swollen compared to left. He also admits to mild seasonal allergies. ROS otherwise neg. Review of Systems All systems PM: 10-point ROS was reviewed, no additional remarkable complaints except - EENMT Eyes: Present: other (redness to right eye - chronic) - Cardiovascular Cardiovascular: Present: edema (chronic b/l legs, R>L) - Integumentary/Breasts Integumentary: Present: other (bruises to both arms) - Neurological Neurological: Present: abnormal gait (walks with a walker), frequent falls (2 falls in the last 2 weeks) - Psychiatric Psychiatric: Present: as per HPI - Hematologic/Lymphatic Hematologic/Lymphatic: Present: easy bleeding, easy bruising - Allergic/Immunologic Allergic/Immunologic: Present: seasonal rhinorrhea Past Medical History Medical History: Medical History (Last Updated 03/29/18 @ 15:26 by Bettie Mireles APRN) Atrial fibrillation (Acute) CVA (cerebral vascular accident) (Chronic) Edema (Chronic) Type 2 diabetes mellitus (Chronic) BPH (benign prostatic hyperplasia) (Chronic) Hypertension (Chronic) Surgical History: TURP. Left craniotomy for ICH - Dr. Painting Family History Updates: Son - prostate cancer. Other son with A-fib Family History: As Above - Social History Smoking status: Never smoker Substance use type: does not use Alcohol intake frequency: does not drink Medications Home Medications Medication Instructions Recorded Confirmed Type sotalol 80 mg tablet 80 mg PO BID #90 tab 12/07/17 03/29/18 Rx Aldactone (spironolactone) 25 mg 25 mg PO QAM #90 tab 12/10/17 03/29/18 Rx tablet aspirin 325 mg tablet 325 mg PO DAILY #1 tab 12/17/17 03/29/18 Rx Zestril (lisinopril) 40 mg tablet 40 mg PO DAILY tab 01/07/18 03/29/18 History dihydroxyaluminum sod carb 334 mg 668 mg PO DAILY PRN tab 01/07/18 03/29/18 History chewable tablet Glucophage (metformin) 1,000 mg 1,000 mg PO BID #1 tab 01/15/18 03/29/18 Rx tablet Risperdal (risperidone) 0.25 mg 0.25 mg PO BID #30 tab 03/18/18 03/29/18 Rx tablet Doxazosin [Cardura] 4 mg PO HS 03/29/18 03/29/18 History Allergies Allergy/AdvReac Type Severity Reaction Status Date / Time cephalexin Allergy Unknown PT DENIES Verified 03/29/18 08:50 erythromycin base Allergy Unknown PT DENIES Verified 03/29/18 08:50 rivaroxaban [From Xarelto] AdvReac Verified 03/29/18 08:50 Exam Vital Signs: Temperature 97.0 F 03/29/18 11:10 Pulse Rate 66 03/29/18 11:10 Respiratory Rate 16 03/29/18 11:10 Blood Pressure 153/89 H 03/29/18 11:10 Pulse Oximetry 98 03/29/18 11:10 Height/Weight/BMI: Height 1.78 m Weight 86.4 kg Body Mass Index 27.3 - Constitutional Present: no acute distress, well nourished, well developed - Routine HEENT Exam Head: Present: normocephalic Eye: Absent: conjunctival icterus, scleral injection Comments: mild erythema/swelling to lower right eyelid - pt reports this is chronic - Routine Neck Exam Present: supple. Absent: lymphadenopathy - Routine Respiratory Exam Present: CTA bilaterally - Routine Cardiovascular Exam Present: irregularly irregular - Routine Abdominal Exam Present: soft, normoactive bowel sounds, non distended, non tender - Routine Extremities Exam Present: edema (BLE, R3+, L2+) - Routine Skin Exam Present: intact, dry, warm, ecchymosis (B/L forearms) - Routine Neurological Exam Present: alert, oriented X3, CN II-XII intact (grossly), moving all extremities , vision grossly intact, hearing grossly intact, normal speech - Routine Psychiatric Exam Present: normal affect, normal thought process, cooperative Results - Labs CBC & Chem 7: 03/29/18 09:51 03/29/18 09:51 Assessment and Plan (1) Dementia Current visit: Yes Status: Acute Assessment and Plan: Assessment Suspect dementia with behavioral changes A-fib, not anticoagulated (pt refusal) DM2 with rising A1c (9% on 03/18/18) HTN Hx of ICH, s/p craniotomy BPH Mild normocytic anemia, chronic Plan Agree with admission to [facility]. Labs reviewed - stable except for hyperglycemia. Monitor glucose - it's unknown whether or not he's been taking Metformin as Rx. SSI low-dose if needed. Diabetic diet ordered. BP elevated - Cont ASA, sotalol, lisinopril, and spironolactone. May need to increase dosages. Vit B12 was low normal on 03/18/18 at 228 - will start PO replacement TSH normal at 1.79. PCP notes reviewed. Resuscitation Status: Full Code - Physician Narrative Physician: Augusto Suh MD Narrative: Date: 03/29/18 Time: 1630 Have independently interviewed and examined pt. Chart reviewed. Case discussed with my VENDING SERVICE TECHNICIAN. Care plan developed with my supervision; agree with above. Admitted to [facility] for increasing paranoia. Medically, feeling okay. Not having chest pressure or pain. Breathing well-no SOA cough or congestion. Appetite fair. No ab pain. Urine slow-notes nocturia 3-5 times a night. No discomfort with urination. Strength fair. Does use walker for assistance. Lungs: clear CV: irregularly irregular AB: soft nt/nd MSE: awake alert Plan: Agree with admission to [facility] for inpatient geropsychiatric care and medication adjustment. Psychiatry will manage and adjust pt's psychoactive medications. Continue home meds. Encourage heart healthy intake to maintain strength. Encourage ambulation. Medically stable for [facility] floor activities. Hospital Course Summary Disclaimer: The visit summary below is not to be considered part of the above Progress Note. Hospital Course: 03/29/18 Agree with admission to [facility]. Labs reviewed - stable except for hyperglycemia. Monitor glucose - it's unknown whether or not he's been taking Metformin as Rx. SSI low-dose if needed. Diabetic diet ordered. BP elevated - Cont ASA, sotalol, lisinopril, and spironolactone. May need to increase dosages. Vit B12 was low normal on 03/18/18 at 228 - will start PO replacement TSH normal at 1.79.
[2018-03-29] MEDS: DOXAZOSIN 4 MG TABLET PO SCH (20:06)
[2018-03-29] MEDS: SOTALOL 80 MG TABLET PO SCH (20:06)
[2018-03-29] MEDS: INSULIN ASPART 100unit/ml INJECTION SQ PRN (21:28)
[2018-03-30] MEDS: INSULIN ASPART 100unit/ml INJECTION SQ PRN ×3 (06:22→20:44)
[2018-03-30] MEDS: LISINOPRIL 40 MG TABLET PO SCH (08:28)
[2018-03-30] MEDS: ASPIRIN 325 MG TABLET PO SCH (08:28)
[2018-03-30] MEDS: CYANOCOBALAMIN (B-12) 500mcg TABLET PO SCH (08:29)
[2018-03-30] MEDS: SOTALOL 80 MG TABLET PO SCH ×2 (08:29→20:38)
[2018-03-30] MEDS: SPIRONOLACTONE 25 MG TABLET PO SCH (08:30)
[2018-03-30] MEDS: METFORMIN 1,000 MG TABLET PO SCH ×2 (08:30→17:31)
--- NOTE | 2018-03-30 12:38 | 24 Hour Neuropsychiatic Eval ---
Date of Admission: 03/29/18 11:10 Chief complaint: "I dont know why I am here" History of Present Illness: HPI: 88 Y/O CM who has been living independently admitted for confusion and paranoia. Pt reportedly believes his (who lives in a NH) has been cheating on him. he has been going to the NH and talking to the staff and his about this. Pt reportedly has also bee having VH at times. Nursing reports pt has been pleasant and cooperative. Scored 21 on SLUMS. On face to face the pt is pleasant but confused. he is oriented x 2. Not sure where his is. He states he is not sure why he is here and states "My family was worried about me". PSYCH ROS: Pt reports his mood is stable. He denies any depression or anxiety. He reprots seeing "red streaks" at times but is not able to elaborated. Has some delusions at times that is cheating on him. PAST PSYCH: Pt was started on Risperdal 0.25mg BID by PCP about 2 weeks ago. Iain says there is no other past psych hx. COLLATERAL: Spoke to patients son. he states patient has been living independently and is still driving. He states there are 2 sons and a daughter and they may have some different beliefs on placement for patient but they all get along well. [facility] Patient Stated Medical History Cerebrovascular Accident Yes: 2002, right side arm weakness Cataracts Yes Other HEENT Yes: wears glasses Cardiac Arrhythmia Yes: afib Asthma Yes: 1959's Diabetes Mellitus Type 2 Yes Hx Benign Prostatic Yes Hyperplasia Osteoarthritis Yes: "no trouble with it now." Other Musculoskeletal Yes: hx. of CVA Clinic Medical History (Last Updated 03/29/18 @ 15:26 by Bettie Mireles, ADOLFO) Atrial fibrillation (Acute Medical) CVA (cerebral vascular accident) (Chronic Medical) Edema (Chronic Medical) Type 2 diabetes mellitus (Chronic Medical) BPH (benign prostatic hyperplasia) (Chronic Medical) Hypertension (Chronic Medical) Surgical History: TURP. Left craniotomy for ICH - Dr. Painting Family History Updates: Son - prostate cancer. Other son with A-fib - Social History Smoking status: Never smoker Substance use type: does not use Alcohol intake frequency: does not drink Mental Status Exam Vitals: Last Vital Signs Temp 97.4 F 03/30/18 08:00 Pulse 77 03/30/18 08:29 Resp 16 03/30/18 08:00 BP 168/74 H 03/30/18 08:00 Pulse Ox 99 03/30/18 08:00 Height: 1.78 m Weight: 86.4 kg - Mental Status Exam Muscle Strength/Tone: Normal Dressing: Casual Grooming: Good Attitude: Cooperative Motor Activity: Normal Eye Contact: Good Speech: Normal Volume: Normal Rhythm: Appropriate Rhythm Orientation: Disoriented to place, Oriented to person, Oriented to time Mood: Euthymic Affect: Relaxed Rate of Thoughts: Delayed Thought Organization: [place] Associations: Intact Abstract Reasoning: Poor abstract reasoning Thought Content: Delusions Perception/Psychotic: Hx psychosis, not current Current Hallucinations: Visual Language: Naming Impaired Fund of Knowledge: Poor fund of knowledge Memory: Poor-immediate, Poor-recent Suicidal Ideation: None Homicidal Ideation: None Insight: Poor Judgement: Poor Impulse Control: Fair - Laboratory Result Diagrams: 03/29/18 09:51 03/29/18 09:51 Laboratory Results - last 24 hr 03/29/18 03/29/18 03/30/18 14:52 21:20 06:12 Glucometer 328 210 213 Triglycerides Cholesterol LDL Cholesterol, Calc VLDL Cholesterol HDL Cholesterol Cholesterol/HDL Ratio 03/30/18 03/30/18 06:30 11:06 Glucometer 215 Triglycerides 80 Cholesterol 105 L LDL Cholesterol, Calc 63.0 L VLDL Cholesterol 16.0 HDL Cholesterol 26 L Cholesterol/HDL Ratio 4.0 Assessment and Plan (1) Major neurocognitive disorder due to Alzheimer's disease, probable, with behavioral disturbance Current visit: Yes Status: Acute Continue to evaluate and stabilize. Will continue Risperdal at current dose. Recommend testing to help family decide what form of placement is best at [place]
[2018-03-30] MEDS: DOXAZOSIN 4 MG TABLET PO SCH (20:38)
[2018-03-31] MEDS: METFORMIN 1,000 MG TABLET PO SCH ×2 (07:51→16:53)
[2018-03-31] MEDS: SOTALOL 80 MG TABLET PO SCH ×2 (08:51→19:59)
[2018-03-31] MEDS: LISINOPRIL 40 MG TABLET PO SCH (08:52)
[2018-03-31] MEDS: CYANOCOBALAMIN (B-12) 500mcg TABLET PO SCH (08:52)
[2018-03-31] MEDS: ASPIRIN 325 MG TABLET PO SCH (08:52)
[2018-03-31] MEDS: SPIRONOLACTONE 25 MG TABLET PO SCH (08:52)
[2018-03-31] MEDS: INSULIN ASPART 100unit/ml INJECTION SQ PRN ×3 (10:14→20:51)
--- NOTE | 2018-03-31 12:04 | Neuropsych Progress Note ---
Generations Subjective Date: 03/31/18 - Sujective/Severity of Illness Medications: Aspirin (Asa) 325 mg PO DAILY [facility] Last Admin: 03/31/18 08:52 Dose: 325 mg Calcium Carbonate (Tums Extra Strength) 750 mg PO DAILY PRN PRN Reason: PRN orders Cyanocobalamin (Vit. B-12) 1,000 mcg PO DAILY [facility] Last Admin: 03/31/18 08:52 Dose: 1,000 mcg Doxazosin Mesylate (Cardura) 4 mg PO HS [facility] Last Admin: 03/30/18 20:38 Dose: 4 mg Haloperidol (Haldol) 0.5 mg PO Q6H PRN PRN Reason: Extreme agitation Haloperidol Lactate (Haldol) 0.5 mg IM Q6H PRN PRN Reason: Extreme agitation Insulin Aspart (Novolog) 1 - 5 unit SQ SS PRN; Protocol PRN Reason: Hyperglycemia Last Admin: 03/31/18 10:14 Dose: 2 unit Lisinopril (Prinivil) 40 mg PO DAILY [facility] Last Admin: 03/31/18 08:52 Dose: 40 mg Lorazepam (Ativan) 0.5 mg PO Q6H PRN PRN Reason: Extreme agitation Lorazepam (Ativan Inj) 0.5 mg IM Q6H PRN PRN Reason: Extreme agitation Metformin HCl (Glucophage) 1,000 mg PO BIDBS [facility] Last Admin: 03/31/18 07:51 Dose: 1,000 mg Risperidone (Risperdal) 0.25 mg PO BID [facility] Last Admin: 03/31/18 08:51 Dose: 0.25 mg Sotalol HCl (Betapace) 80 mg PO BID [facility] Last Admin: 03/31/18 08:51 Dose: 80 mg Spironolactone (Aldactone 25 Mg) 25 mg PO QAM [facility] Last Admin: 03/31/18 08:52 Dose: 25 mg Subjective: Pt seen and chart examined. Nursing reports pt is doing well on the unit. Sleeping well and has a good appetite. No behaviors noted. On face to face the pt states he is doing well. he has poor short term memory and poor insight into why he is here. He does have some delusions around his cheating on him but it seems to bother him less. Tolerating meds. Start Time: 11:00 Stop Time: 11:15 Mental Status Exam Vitals: Last Vital Signs Temp 97.3 F 03/31/18 08:27 Pulse 80 03/31/18 08:51 Resp 14 03/31/18 08:27 BP 134/81 03/31/18 08:27 Pulse Ox 96 03/31/18 08:27 Height: 1.78 m Weight: 86.4 kg - Mental Status Exam Muscle Strength/Tone: Normal Dressing: Casual Grooming: Good Attitude: Cooperative Motor Activity: Normal Eye Contact: Good Speech: Normal Volume: Normal Rhythm: Appropriate Rhythm Orientation: Disoriented to place, Oriented to person, Oriented to time Mood: Euthymic Rate of Thoughts: Delayed Thought Organization: [place] Associations: Intact Abstract Reasoning: Poor abstract reasoning Thought Content: Delusions Perception/Psychotic: Hx psychosis, not current Current Hallucinations: Visual Language: Naming Impaired Fund of Knowledge: Poor fund of knowledge Memory: Poor-immediate, Poor-recent Suicidal Ideation: None Homicidal Ideation: None Insight: Poor Judgement: Poor Impulse Control: Fair - Laboratory Result Diagrams: 03/29/18 09:51 03/29/18 09:51 Laboratory Results - last 24 hr 03/30/18 03/30/18 03/31/18 14:35 20:10 06:23 Glucometer 252 271 218 Assessment and Plan (1) Major neurocognitive disorder due to Alzheimer's disease, probable, with behavioral disturbance Current visit: Yes Status: Acute Hospital Course Summary Disclaimer: The visit summary below is not to be considered part of the above Progress Note. Hospital Course: 03/29/18 Agree with admission to [facility]. Labs reviewed - stable except for hyperglycemia. Monitor glucose - it's unknown whether or not he's been taking Metformin as Rx. SSI low-dose if needed. Diabetic diet ordered. BP elevated - Cont ASA, sotalol, lisinopril, and spironolactone. May need to increase dosages. Vit B12 was low normal on 03/18/18 at 228 - will start PO replacement TSH normal at 1.79. 03/31/18 Psych note- No behaviors noted. Continue current care
[2018-03-31] MEDS: DOXAZOSIN 4 MG TABLET PO SCH (19:59)
[2018-04-01] MEDS: INSULIN ASPART 100unit/ml INJECTION SQ PRN ×3 (06:17→20:32)
[2018-04-01] MEDS: LISINOPRIL 40 MG TABLET PO SCH (08:05)
[2018-04-01] MEDS: SOTALOL 80 MG TABLET PO SCH ×2 (08:05→20:16)
[2018-04-01] MEDS: CYANOCOBALAMIN (B-12) 500mcg TABLET PO SCH (08:07)
[2018-04-01] MEDS: SPIRONOLACTONE 25 MG TABLET PO SCH (08:07)
[2018-04-01] MEDS: METFORMIN 1,000 MG TABLET PO SCH ×2 (08:07→17:53)
[2018-04-01] MEDS: ASPIRIN 325 MG TABLET PO SCH (08:08)
--- NOTE | 2018-04-01 08:42 | Neuropsych Progress Note ---
Generations Subjective Date: 04/01/18 - Sujective/Severity of Illness Medications: Aspirin (Asa) 325 mg PO DAILY [facility] Last Admin: 04/01/18 08:08 Dose: 325 mg Calcium Carbonate (Tums Extra Strength) 750 mg PO DAILY PRN PRN Reason: PRN orders Cyanocobalamin (Vit. B-12) 1,000 mcg PO DAILY [facility] Last Admin: 04/01/18 08:07 Dose: 1,000 mcg Doxazosin Mesylate (Cardura) 4 mg PO HS [facility] Last Admin: 03/31/18 19:59 Dose: 4 mg Haloperidol (Haldol) 0.5 mg PO Q6H PRN PRN Reason: Extreme agitation Haloperidol Lactate (Haldol) 0.5 mg IM Q6H PRN PRN Reason: Extreme agitation Insulin Aspart (Novolog) 1 - 5 unit SQ SS PRN; Protocol PRN Reason: Hyperglycemia Last Admin: 04/01/18 06:17 Dose: 2 unit Lisinopril (Prinivil) 40 mg PO DAILY [facility] Last Admin: 04/01/18 08:05 Dose: 40 mg Lorazepam (Ativan) 0.5 mg PO Q6H PRN PRN Reason: Extreme agitation Lorazepam (Ativan Inj) 0.5 mg IM Q6H PRN PRN Reason: Extreme agitation Metformin HCl (Glucophage) 1,000 mg PO BIDBS [facility] Last Admin: 04/01/18 08:07 Dose: 1,000 mg Risperidone (Risperdal) 0.25 mg PO BID [facility] Last Admin: 04/01/18 08:07 Dose: 0.25 mg Sotalol HCl (Betapace) 80 mg PO BID [facility] Last Admin: 04/01/18 08:05 Dose: 80 mg Spironolactone (Aldactone 25 Mg) 25 mg PO QAM [facility] Last Admin: 04/01/18 08:07 Dose: 25 mg Subjective: Patient seen and chart reviewed. Case discussed with treatment team. On interview, patient is pleasant and cooperative. He reports that his mood is good and he feels well physically. Patient is aware that others think he is having hallucinations of red spots on the ceiling overnight, but he insists these are real. He has also accused his of infidelity and spent time reading scripture to her because of this. Patient does not feel that he is having any memory/cognitive deficits. Patient denies any SI, HI or AVH. Patient denies any adverse side effects related to psychotropic medications. Nursing staff report patient has been pleasant/cooperative overall. Patient has been adherent with medications. Patient slept 7.5 hours overnight. VSS. Patient is eating well. Psychotropic PRNs required in the past 24 hours: none. Start Time: 11:40 Stop Time: 12:00 Mental Status Exam Vitals: Last Vital Signs Temp 96.9 F 04/01/18 07:57 Pulse 83 04/01/18 08:05 Resp 16 04/01/18 07:57 BP 143/86 H 04/01/18 07:57 Pulse Ox 97 04/01/18 07:57 Height: 1.78 m Weight: 86.4 kg - Mental Status Exam Muscle Strength/Tone: Normal Dressing: Casual Grooming: Good Attitude: Cooperative, Defensive Motor Activity: Normal Eye Contact: Good Speech: Normal Volume: Normal Rhythm: Appropriate Rhythm Sensory: Alert Orientation: Disoriented to place, Oriented to person, Oriented to time Mood: Euthymic Affect: Relaxed Rate of Thoughts: Delayed Thought Organization: [place] Associations: Intact Abstract Reasoning: Poor abstract reasoning Thought Content: Delusions Perception/Psychotic: Hx psychosis, not current Current Hallucinations: Visual Language: Naming Impaired Fund of Knowledge: Poor fund of knowledge Memory: Poor-immediate, Poor-recent Suicidal Ideation: Denies Homicidal Ideation: Denies Insight: Poor Judgement: Poor Impulse Control: Fair - Laboratory Result Diagrams: 03/29/18 09:51 03/29/18 09:51 Laboratory Results - last 24 hr 03/31/18 03/31/18 03/31/18 10:01 14:15 20:36 Glucometer 229 173 171 04/01/18 06:06 Glucometer 207 Assessment and Plan (1) Major neurocognitive disorder due to Alzheimer's disease, probable, with behavioral disturbance Current visit: Yes Status: Acute Will discuss risks/benefits of antipsychotic use with DPOA. Will need placement after discharge. Hospital Course Summary Disclaimer: The visit summary below is not to be considered part of the above Progress Note. Hospital Course: 03/29/18 Agree with admission to [facility]. Labs reviewed - stable except for hyperglycemia. Monitor glucose - it's unknown whether or not he's been taking Metformin as Rx. SSI low-dose if needed. Diabetic diet ordered. BP elevated - Cont ASA, sotalol, lisinopril, and spironolactone. May need to increase dosages. Vit B12 was low normal on 03/18/18 at 228 - will start PO replacement TSH normal at 1.79. 03/31/18 Psych note- No behaviors noted. Continue current care. 04/01/18 Psych: Will discuss risks/benefits of antipsychotic use with DPOA. Will need placement after discharge.
[2018-04-01] MEDS ORDERED: RisperiDONE 0.5 MG TABLET PO ONE (17:59)
[2018-04-01] MEDS: DOXAZOSIN 4 MG TABLET PO SCH (20:17)
[2018-04-01] MEDS ORDERED: RisperiDONE 0.5 MG TABLET PO SCH (21:00)
[2018-04-02] MEDS: INSULIN ASPART 100unit/ml INJECTION SQ PRN ×3 (06:09→20:05)
[2018-04-02] MEDS: LISINOPRIL 40 MG TABLET PO SCH (08:18)
[2018-04-02] MEDS: METFORMIN 1,000 MG TABLET PO SCH ×2 (08:18→17:17)
[2018-04-02] MEDS: CYANOCOBALAMIN (B-12) 500mcg TABLET PO SCH (08:18)
[2018-04-02] MEDS: RisperiDONE 0.5 MG TABLET PO SCH ×2 (08:18→17:17)
[2018-04-02] MEDS: SPIRONOLACTONE 25 MG TABLET PO SCH (08:18)
[2018-04-02] MEDS: SOTALOL 80 MG TABLET PO SCH ×2 (08:18→20:04)
[2018-04-02] MEDS: ASPIRIN 325 MG TABLET PO SCH (08:19)
--- NOTE | 2018-04-02 09:12 | Progress Note ---
- Date 04/02/18 Subjective: Mr. Packer was just waking up for the day. He was pleasant and smiled when he saw me -- denied any c/o and reported that he was ready for breakfast. Objective Vital signs: Temperature 97.0 F 04/02/18 08:00 Pulse Rate 77 04/02/18 08:18 Respiratory Rate 18 04/02/18 08:00 Blood Pressure 145/84 H 04/02/18 08:00 Pulse Oximetry 99 04/02/18 08:00 Height/Weight/BMI: Height 1.78 m Weight 86.4 kg Body Mass Index 27.3 - Constitutional Present: no acute distress, well nourished, well developed - Routine HEENT Exam Head: Present: normocephalic Eye: Present: PERRL. Absent: conjunctival icterus, scleral injection ENT: Present: mucous membranes moist, oropharynx clear - Routine Respiratory Exam Present: CTA bilaterally - Routine Cardiovascular Exam Present: irregularly irregular - Routine Abdominal Exam Present: soft, normoactive bowel sounds, non distended, non tender - Routine Extremities Exam Present: edema (BLE R>L) - Routine Skin Exam Present: intact, dry, warm, ecchymosis (B/L forearms) - Routine Neurological Exam Present: alert, moving all extremities, normal speech. Absent: facial asymmetry - Routine Psychiatric Exam Present: normal affect, normal thought process, cooperative Results - Labs CBC & Chem 7: 03/29/18 09:51 03/29/18 09:51 Assessment and Plan (1) Dementia Current visit: Yes Status: Acute Assessment and Plan: Assessment Suspect dementia with behavioral changes A-fib, not anticoagulated (pt refusal) DM2 with rising A1c (9% on 03/18/18) HTN Hx of ICH, s/p craniotomy BPH Mild normocytic anemia, chronic Vit B12 low normal Plan Accuchecks are gradually improving with routine Metformin use and diabetic diet. BP moderately elevated at times - cont to monitor, prefer not to increase antiHTN doses d/t hx of recent falls and to minimize orthostasis. Psych notes reviewed. - Physician Narrative Narrative: Date: 04/02/18 Time: 905 Hospital Course Summary Disclaimer: The visit summary below is not to be considered part of the above Progress Note. Hospital Course: 03/29/18 Agree with admission to [facility]. Labs reviewed - stable except for hyperglycemia. Monitor glucose - it's unknown whether or not he's been taking Metformin as Rx. SSI low-dose if needed. Diabetic diet ordered. BP elevated - Cont ASA, sotalol, lisinopril, and spironolactone. May need to increase dosages. Vit B12 was low normal on 03/18/18 at 228 - will start PO replacement TSH normal at 1.79. 03/31/18 Psych note- No behaviors noted. Continue current care. 04/01/18 Psych: Will discuss risks/benefits of antipsychotic use with DPOA. Will need placement after discharge. 04/02/18 Accuchecks are gradually improving with routine Metformin use and diabetic diet. BP moderately elevated at times - cont to monitor, prefer not to increase antiHTN doses d/t hx of recent falls and to minimize orthostasis.
--- NOTE | 2018-04-02 09:28 | Neuropsych Progress Note ---
[facility] Subjective Date: 04/02/18 - Sujective/Severity of Illness Medications: Aspirin (Asa) 325 mg PO DAILY [facility] Last Admin: 04/02/18 08:19 Dose: 325 mg Calcium Carbonate (Tums Extra Strength) 750 mg PO DAILY PRN PRN Reason: PRN orders Cyanocobalamin (Vit. B-12) 1,000 mcg PO DAILY [facility] Last Admin: 04/02/18 08:18 Dose: 1,000 mcg Doxazosin Mesylate (Cardura) 4 mg PO HS [facility] Last Admin: 04/01/18 20:17 Dose: 4 mg Haloperidol (Haldol) 0.5 mg PO Q6H PRN PRN Reason: Extreme agitation Haloperidol Lactate (Haldol) 0.5 mg IM Q6H PRN PRN Reason: Extreme agitation Insulin Aspart (Novolog) 1 - 5 unit SQ SS PRN; Protocol PRN Reason: Hyperglycemia Last Admin: 04/02/18 06:09 Dose: 1 unit Lisinopril (Prinivil) 40 mg PO DAILY [facility] Last Admin: 04/02/18 08:18 Dose: 40 mg Lorazepam (Ativan) 0.5 mg PO Q6H PRN PRN Reason: Extreme agitation Lorazepam (Ativan Inj) 0.5 mg IM Q6H PRN PRN Reason: Extreme agitation Metformin HCl (Glucophage) 1,000 mg PO BIDBS [facility] Last Admin: 04/02/18 08:18 Dose: 1,000 mg Risperidone (Risperdal) 0.5 mg PO 0900,1730 [facility] Last Admin: 04/02/18 08:18 Dose: 0.5 mg Sotalol HCl (Betapace) 80 mg PO BID [facility] Last Admin: 04/02/18 08:18 Dose: 80 mg Spironolactone (Aldactone 25 Mg) 25 mg PO QAM [facility] Last Admin: 04/02/18 08:18 Dose: 25 mg Subjective: Patient seen and chart reviewed. Case discussed with treatment team. Discussed diagnosis, treatment options, future planning with son Gustavo last night and we discussed risks/benefits of Risperdal, including black box warning. He feels that delusions have interfered with family functioning and that placement would be very beneficial for patient. On interview, patient is pleasant and cooperative. Son and DIL are present and patient signed financial DPOA over to them. No paranoia/delusions reported in this process. Discussed future planning with patient and he is willing to move to facility. SW to help family with this process. Patient denies any SI, HI or AVH. Patient denies any adverse side effects related to psychotropic medications. Nursing staff report patient has been pleasant/cooperative overall. Patient has been adherent with medications. Patient slept 7.25 hours overnight. VSS. Patient is eating well. Psychotropic PRNs required in the past 24 hours: none. Start Time: 03:40 Stop Time: 14:00 Mental Status Exam Vitals: Last Vital Signs Temp 97.0 F 04/02/18 08:00 Pulse 77 04/02/18 08:18 Resp 18 04/02/18 08:00 BP 145/84 H 04/02/18 08:00 Pulse Ox 99 04/02/18 08:00 Height: 1.78 m Weight: 86.4 kg - Mental Status Exam Muscle Strength/Tone: Normal Dressing: Casual Grooming: Good Attitude: Cooperative Motor Activity: Normal Eye Contact: Good Speech: Normal Volume: Normal Rhythm: Appropriate Rhythm Sensory: Alert Orientation: Disoriented to place, Disoriented to situation, Oriented to person , Oriented to time Mood: Euthymic Affect: Relaxed Rate of Thoughts: Delayed Thought Organization: [place] Associations: Intact Abstract Reasoning: Poor abstract reasoning Thought Content: Delusions (decreasing) Perception/Psychotic: Hx psychosis, not current Language: Naming Impaired Fund of Knowledge: Poor fund of knowledge Memory: Poor-immediate, Poor-recent Suicidal Ideation: Denies Homicidal Ideation: Denies Insight: Poor Judgement: Poor Impulse Control: Fair - Laboratory Result Diagrams: 03/29/18 09:51 03/29/18 09:51 Laboratory Results - last 24 hr 04/01/18 04/01/18 04/01/18 10:15 15:37 20:22 Glucometer 269 149 217 04/02/18 06:01 Glucometer 183 Assessment and Plan (1) Major neurocognitive disorder due to Alzheimer's disease, probable, with behavioral disturbance Current visit: Yes Status: Acute Risperdal increased to 0.5mg PO BID on 04/01 after conversation with son Gustavo. SW/ CM to work on placement options with patient and family. Hospital Course Summary Disclaimer: The visit summary below is not to be considered part of the above Progress Note. Hospital Course: 03/29/18 Agree with admission to [facility]. Labs reviewed - stable except for hyperglycemia. Monitor glucose - it's unknown whether or not he's been taking Metformin as Rx. SSI low-dose if needed. Diabetic diet ordered. BP elevated - Cont ASA, sotalol, lisinopril, and spironolactone. May need to increase dosages. Vit B12 was low normal on 03/18/18 at 228 - will start PO replacement TSH normal at 1.79. 03/31/18 Psych note- No behaviors noted. Continue current care. 04/01/18 Psych: Will discuss risks/benefits of antipsychotic use with DPOA. Will need placement after discharge. 04/02/18 Accuchecks are gradually improving with routine Metformin use and diabetic diet. BP moderately elevated at times - cont to monitor, prefer not to increase antiHTN doses d/t hx of recent falls and to minimize orthostasis. 04/02/18 Psych: Risperdal increased to 0.5mg PO BID on 04/01 after conversation with son Gustavo.
[2018-04-02] MEDS: DOXAZOSIN 4 MG TABLET PO SCH (20:04)
[2018-04-03] MEDS: SOTALOL 80 MG TABLET PO SCH ×3 (08:25→20:42)
[2018-04-03] MEDS: LISINOPRIL 40 MG TABLET PO SCH (08:26)
[2018-04-03] MEDS: METFORMIN 1,000 MG TABLET PO SCH ×2 (08:26→17:24)
[2018-04-03] MEDS: RisperiDONE 0.5 MG TABLET PO SCH ×2 (08:26→17:24)
[2018-04-03] MEDS: ASPIRIN 325 MG TABLET PO SCH (08:27)
[2018-04-03] MEDS: SPIRONOLACTONE 25 MG TABLET PO SCH (08:27)
[2018-04-03] MEDS: CYANOCOBALAMIN (B-12) 500mcg TABLET PO SCH (08:27)
--- NOTE | 2018-04-03 08:50 | Neuropsych Progress Note ---
[facility] Subjective Date: 04/04/18 - Sujective/Severity of Illness Medications: Aspirin (Asa) 325 mg PO DAILY [facility] Last Admin: 04/03/18 08:27 Dose: 325 mg Calcium Carbonate (Tums Extra Strength) 750 mg PO DAILY PRN PRN Reason: PRN orders Cyanocobalamin (Vit. B-12) 1,000 mcg PO DAILY [facility] Last Admin: 04/03/18 08:27 Dose: 1,000 mcg Doxazosin Mesylate (Cardura) 4 mg PO HS [facility] Last Admin: 04/02/18 20:04 Dose: 4 mg Haloperidol (Haldol) 0.5 mg PO Q6H PRN PRN Reason: Extreme agitation Haloperidol Lactate (Haldol) 0.5 mg IM Q6H PRN PRN Reason: Extreme agitation Insulin Aspart (Novolog) 1 - 5 unit SQ SS PRN; Protocol PRN Reason: Hyperglycemia Last Admin: 04/02/18 20:05 Dose: 1 unit Lisinopril (Prinivil) 40 mg PO DAILY [facility] Last Admin: 04/03/18 08:26 Dose: 40 mg Lorazepam (Ativan) 0.5 mg PO Q6H PRN PRN Reason: Extreme agitation Lorazepam (Ativan Inj) 0.5 mg IM Q6H PRN PRN Reason: Extreme agitation Metformin HCl (Glucophage) 1,000 mg PO BIDBS [facility] Last Admin: 04/03/18 08:26 Dose: 1,000 mg Risperidone (Risperdal) 0.5 mg PO 0900,1730 [facility] Last Admin: 04/03/18 08:26 Dose: 0.5 mg Sotalol HCl (Betapace) 80 mg PO BID [facility] Last Admin: 04/03/18 08:25 Dose: 80 mg Spironolactone (Aldactone 25 Mg) 25 mg PO QAM [facility] Last Admin: 04/03/18 08:27 Dose: 25 mg Subjective: Patient seen and chart reviewed. Case discussed with treatment team. On interview, patient is pleasant and cooperative. He reports that his mood is good and he feels well physically. He has been engaging well in group. Patient denies any SI, HI or AVH. Patient denies any adverse side effects related to psychotropic medications. Nursing staff report patient has been pleasant/cooperative overall. Patient has been adherent with medications. Patient slept 8+ hours overnight. VSS. Patient is eating well. Psychotropic PRNs required in the past 24 hours: none. Start Time: 12:40 Stop Time: 13:00 Mental Status Exam Vitals: Last Vital Signs Temp 97.2 F 04/03/18 08:00 Pulse 89 04/03/18 08:25 Resp 16 04/03/18 08:00 BP 158/85 H 04/03/18 08:00 Pulse Ox 97 04/03/18 08:00 Height: 1.78 m Weight: 86.4 kg - Mental Status Exam Muscle Strength/Tone: Normal Dressing: Casual Grooming: Good Attitude: Cooperative Motor Activity: Normal Eye Contact: Good Speech: Normal Volume: Normal Rhythm: Appropriate Rhythm Orientation: Disoriented to place, Disoriented to situation, Oriented to person , Oriented to time Mood: Euthymic Affect: Relaxed Rate of Thoughts: Delayed Thought Organization: [place] Associations: Intact Abstract Reasoning: Poor abstract reasoning Thought Content: Normal Perception/Psychotic: Hx psychosis, not current Current Hallucinations: Visual Language: Naming Impaired Fund of Knowledge: Poor fund of knowledge Memory: Poor-immediate, Poor-recent Suicidal Ideation: Denies Homicidal Ideation: Denies Insight: Poor Judgement: Poor Impulse Control: Fair - Laboratory Result Diagrams: 03/29/18 09:51 03/29/18 09:51 Laboratory Results - last 24 hr 04/02/18 04/02/18 04/02/18 10:10 13:55 20:11 Glucometer 231 212 206 04/03/18 06:29 Glucometer 170 Assessment and Plan (1) Major neurocognitive disorder due to Alzheimer's disease, probable, with behavioral disturbance Problem details: History of psychosis Current visit: Yes Status: Acute Will order EKG, continue current care otherwise. LAMIN ordered on 04/02. Hospital Course Summary Disclaimer: The visit summary below is not to be considered part of the above Progress Note. Hospital Course: 03/29/18 Agree with admission to [facility]. Labs reviewed - stable except for hyperglycemia. Monitor glucose - it's unknown whether or not he's been taking Metformin as Rx. SSI low-dose if needed. Diabetic diet ordered. BP elevated - Cont ASA, sotalol, lisinopril, and spironolactone. May need to increase dosages. Vit B12 was low normal on 03/18/18 at 228 - will start PO replacement TSH normal at 1.79. 03/31/18 Psych note- No behaviors noted. Continue current care. 04/01/18 Psych: Will discuss risks/benefits of antipsychotic use with DPOA. Will need placement after discharge. 04/02/18 Accuchecks are gradually improving with routine Metformin use and diabetic diet. BP moderately elevated at times - cont to monitor, prefer not to increase antiHTN doses d/t hx of recent falls and to minimize orthostasis. 04/02/18 Psych: Risperdal increased to 0.5mg PO BID on 04/01 after conversation with son Gustavo. 04/03/18 Psych: Will order EKG, continue current care otherwise. LAMIN ordered on 04/02.
[2018-04-03] MEDS: INSULIN ASPART 100unit/ml INJECTION SQ PRN (10:25)
[2018-04-03] MEDS: DOXAZOSIN 4 MG TABLET PO SCH ×2 (19:57→20:42)
[2018-04-04] MEDS: METFORMIN 1,000 MG TABLET PO SCH ×2 (08:16→17:29)
[2018-04-04] MEDS: CYANOCOBALAMIN (B-12) 500mcg TABLET PO SCH (08:17)
[2018-04-04] MEDS: LISINOPRIL 40 MG TABLET PO SCH (08:17)
[2018-04-04] MEDS: RisperiDONE 0.5 MG TABLET PO SCH ×2 (08:17→17:29)
[2018-04-04] MEDS: ASPIRIN 325 MG TABLET PO SCH (08:17)
[2018-04-04] MEDS: SOTALOL 80 MG TABLET PO SCH ×2 (08:17→19:37)
[2018-04-04] MEDS: SPIRONOLACTONE 25 MG TABLET PO SCH (08:18)
--- NOTE | 2018-04-04 10:45 | Neuropsych Progress Note ---
[facility] Subjective Date: 04/04/18 - Sujective/Severity of Illness Medications: Aspirin (Asa) 325 mg PO DAILY [facility] Last Admin: 04/04/18 08:17 Dose: 325 mg Calcium Carbonate (Tums Extra Strength) 750 mg PO DAILY PRN PRN Reason: PRN orders Cyanocobalamin (Vit. B-12) 1,000 mcg PO DAILY [facility] Last Admin: 04/04/18 08:17 Dose: 1,000 mcg Doxazosin Mesylate (Cardura) 4 mg PO HS [facility] Last Admin: 04/03/18 20:42 Dose: Not Given Haloperidol (Haldol) 0.5 mg PO Q6H PRN PRN Reason: Extreme agitation Haloperidol Lactate (Haldol) 0.5 mg IM Q6H PRN PRN Reason: Extreme agitation Insulin Aspart (Novolog) 1 - 5 unit SQ SS PRN; Protocol PRN Reason: Hyperglycemia Last Admin: 04/03/18 10:25 Dose: 3 unit Lisinopril (Prinivil) 40 mg PO DAILY [facility] Last Admin: 04/04/18 08:17 Dose: 40 mg Lorazepam (Ativan) 0.5 mg PO Q6H PRN PRN Reason: Extreme agitation Lorazepam (Ativan Inj) 0.5 mg IM Q6H PRN PRN Reason: Extreme agitation Metformin HCl (Glucophage) 1,000 mg PO BIDBS [facility] Last Admin: 04/04/18 08:16 Dose: 1,000 mg Risperidone (Risperdal) 0.5 mg PO 0900,1730 [facility] Last Admin: 04/04/18 08:17 Dose: 0.5 mg Sotalol HCl (Betapace) 80 mg PO BID [facility] Last Admin: 04/04/18 08:17 Dose: 80 mg Spironolactone (Aldactone 25 Mg) 25 mg PO QAM [facility] Last Admin: 04/04/18 08:18 Dose: 25 mg Subjective: Patient seen and chart reviewed. Case discussed with treatment team. On interview, patient is pleasant and cooperative. He reports that his mood is good and he feels well physically other than some dizziness upon standing. Nursing to encourage patient to drink more fluids today and will monitor this. Patient denies any SI, HI or AVH. Nursing staff report patient has been pleasant/cooperative overall. Patient has been adherent with medications. Patient slept 8 hours overnight. VSS. Patient is eating well. Psychotropic PRNs required in the past 24 hours: none. Start Time: 07:15 Stop Time: 07:30 Mental Status Exam Vitals: Last Vital Signs Temp 97.4 F 04/04/18 08:00 Pulse 78 04/04/18 08:17 Resp 16 04/04/18 08:00 BP 158/89 H 04/04/18 08:00 Pulse Ox 98 04/04/18 08:00 Height: 1.78 m Weight: 86.4 kg - Mental Status Exam Muscle Strength/Tone: Normal Dressing: Casual Grooming: Good Attitude: Cooperative Motor Activity: Normal Eye Contact: Good Speech: Normal Volume: Normal Rhythm: Appropriate Rhythm Orientation: Disoriented to place, Disoriented to situation, Oriented to person , Oriented to time Mood: Euthymic Affect: Relaxed Rate of Thoughts: Delayed Thought Organization: [place] Associations: Intact Abstract Reasoning: Poor abstract reasoning Thought Content: Normal Perception/Psychotic: Hx psychosis, not current Current Hallucinations: Visual Language: Naming Impaired Fund of Knowledge: Poor fund of knowledge Memory: Poor-immediate, Poor-recent Suicidal Ideation: Denies Homicidal Ideation: Denies Insight: Limited Judgement: Limited Impulse Control: Fair - Laboratory Result Diagrams: 03/29/18 09:51 03/29/18 09:51 Laboratory Results - last 24 hr 04/03/18 04/03/18 04/04/18 14:08 19:44 05:53 Glucometer 163 240 212 Assessment and Plan (1) Major neurocognitive disorder due to multiple etiologies Problem details: 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 SW working with family to find safe discharge plan. Hospital Course Summary Disclaimer: The visit summary below is not to be considered part of the above Progress Note. Hospital Course: 03/29/18 Agree with admission to [facility]. Labs reviewed - stable except for hyperglycemia. Monitor glucose - it's unknown whether or not he's been taking Metformin as Rx. SSI low-dose if needed. Diabetic diet ordered. BP elevated - Cont ASA, sotalol, lisinopril, and spironolactone. May need to increase dosages. Vit B12 was low normal on 03/18/18 at 228 - will start PO replacement TSH normal at 1.79. 03/31/18 Psych note- No behaviors noted. Continue current care. 04/01/18 Psych: Will discuss risks/benefits of antipsychotic use with DPOA. Will need placement after discharge. 04/02/18 Accuchecks are gradually improving with routine Metformin use and diabetic diet. BP moderately elevated at times - cont to monitor, prefer not to increase antiHTN doses d/t hx of recent falls and to minimize orthostasis. 04/02/18 Psych: Risperdal increased to 0.5mg PO BID on 04/01 after conversation with son Gustavo. 04/03/18 Psych: Will order EKG, continue current care otherwise. LAMIN ordered on 04/02. 04/04/18 Psych: Continue current care. SW working with family to find safe discharge plan.
[2018-04-04] MEDS: INSULIN ASPART 100unit/ml INJECTION SQ PRN ×3 (10:56→19:38)
--- NOTE | 2018-04-04 12:11 | Extended Care Facility Orders ---
Admission Orders Admit to:: [facility] Allergies/Adverse Reactions: Allergies cephalexin Allergy (Unknown, Verified 03/29/18 08:50) PT DENIES STATES HE NO LONGER HAS THIS ALLERGY AND DOES NOT REMEMBER WHAT KIND OF REACTION HE HAD TO IT erythromycin base Allergy (Unknown, Verified 03/29/18 08:50) PT DENIES PT STATES HE NO LONGER IS ALLERGIC AND DOESN'T REMEMBER WHAT KIND OF REACTION HE HAS HAD rivaroxaban [From Xarelto] Adverse Reaction (Verified 03/29/18 08:50) severe dizziness Admitting Diagnosis: Psychosis Admitting Physician: Fide Puente MD Attending Physician: Fide Puente MD Code Status: Full Code Anticiapted Length of Stay: greater than 30 days Diet: 03/29/18 Dinner Diabetic Diet [Consistent Carbohydrate Diet] [DIET] Calorie Level: 199903/29/18 Lunch Diabetic Diet [Consistent Carbohydrate Diet] [DIET] Calorie Level: 1999 May use Facility Protocol or Standing Orders: Yes May have flu vaccine: Yes Evaluations/Treatment: Psychiatric Fdc Certification: I certify that SNF services are required to be given on an Inpatient basis because of the patients need for [facility] care on a continuing basis for the condition(s) for which he/she received inpatient hospital services prior to his/her transfer to the SNF. SNF inpatient care is necessary for the following reasons Indication for Fdc: Not Applicable - Additional Information In Event of Arrest: Start CPR,call 911,send patient to the ER Resident is Aware of Diagnosis: Yes Referrals: Rosario Spears PA [Primary Care Provider] -
[2018-04-04 19:38] VITALS: PULSE 74; O2SAT 99
[2018-04-04] MEDS: DOXAZOSIN 4 MG TABLET PO SCH (19:39)
[2018-04-05] MEDS: DOXAZOSIN 4 MG TABLET PO SCH (02:04)
[2018-04-05] MEDS: SOTALOL 80 MG TABLET PO SCH ×2 (02:04→08:09)
[2018-04-05 08:04] VITALS: BP 134/78; RESP 16; TEMP 96.4
[2018-04-05] MEDS: LISINOPRIL 40 MG TABLET PO SCH (08:08)
[2018-04-05] MEDS: ASPIRIN 325 MG TABLET PO SCH (08:08)
[2018-04-05] MEDS: CYANOCOBALAMIN (B-12) 500mcg TABLET PO SCH (08:09)
[2018-04-05] MEDS: SPIRONOLACTONE 25 MG TABLET PO SCH (08:09)
[2018-04-05] MEDS: METFORMIN 1,000 MG TABLET PO SCH (08:09)
[2018-04-05] MEDS: RisperiDONE 0.5 MG TABLET PO SCH (08:09)
--- NOTE | 2018-04-05 09:10 | Neuropsychiatric Disch Summary ---
Discharge Information Date of admission: 03/29/18 11:10 Anticipated date of discharge: 04/05/18 Attending Physician: Fide Puente MD Primary care physician: JAZMIN Christianson Consults: 03/29/18 12:21 Case Management Consult [CONS] Routine Reason For Exam: Optimization of medical comorbidities Physician Consult [CONS] Routine Consulting Provider: Augusto Suh Reason For Exam: Optimization of medical comorbidities Ordering Provider has Notified Wool Washer: No Comment: Nursing - please notify - Discharge Diagnosis (1) Major neurocognitive disorder due to multiple etiologies Status: Acute (1) Major neurocognitive disorder due to multiple etiologies Problem details: 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 Pt reportedly believes his (who lives in a NH) has been cheating on him. he has been going to the NH and talking to the staff and his about this. Pt reportedly has also bee having VH at times. Nursing reports pt has been pleasant and cooperative. Scored 21 on SLUMS. On face to face the pt is pleasant but confused. he is oriented x 2. Not sure where his is. He states he is not sure why he is here and states "My family was worried about me". PSYCH ROS: Pt reports his mood is stable. He denies any depression or anxiety. He reprots seeing "red streaks" at times but is not able to elaborated. Has some delusions at times that is cheating on him. PAST PSYCH: Pt was started on Risperdal 0.25mg BID by PCP about 2 weeks ago. Iain says there is no other past psych hx. COLLATERAL: Spoke to patients son. he states patient has been living independently and is still driving. He states there are 2 sons and a daughter and they may have some different beliefs on placement for patient but they all get along well. Hospital Course This is a general summary of the patient's hospital course. For more details refer to the complete medical record. Hospital course: 03/29/18 Agree with admission to [facility]. Labs reviewed - stable except for hyperglycemia. Monitor glucose - it's unknown whether or not he's been taking Metformin as Rx. SSI low-dose if needed. Diabetic diet ordered. BP elevated - Cont ASA, sotalol, lisinopril, and spironolactone. May need to increase dosages. Vit B12 was low normal on 03/18/18 at 228 - will start PO replacement TSH normal at 1.79. 03/31/18 Psych note- No behaviors noted. Continue current care. 04/01/18 Psych: Will discuss risks/benefits of antipsychotic use with DPOA. Will need placement after discharge. 04/02/18 Accuchecks are gradually improving with routine Metformin use and diabetic diet. BP moderately elevated at times - cont to monitor, prefer not to increase antiHTN doses d/t hx of recent falls and to minimize orthostasis. 04/02/18 Psych: Risperdal increased to 0.5mg PO BID on 04/01 after conversation with son Gustavo. 04/03/18 Psych: Will order EKG, continue current care otherwise. LAMIN ordered on 04/02. 04/04/18 Psych: Continue current care. SW working with family to find safe discharge plan. Resuscitation Status: Full Code Discharge Plan - Med Rec/Dispo Referrals/Follow Up: Kika Hicks MD [Physician] - (Dr. Nii Hicks will see patient on rounds at the facility for Hosp. follow-up Mental Health needs will be met by the Training And Development Manager (Dr. Nii Hicks) as needed.) Additional Instructions: Discharge Diagnosis: Major neurocognitive disorder, vascular and Alzheimer's, moderate History of psychosis Reasons for Admission: Hallucinations/Delusions, Paranoia, and Delusions IN CASE OF PSYCHIATRIC EMERGENCY, CONTACT [facility] ST[facility] AT [phone] ( available 24 hrs daily) Prescriptions: New Cyanocobalamin (B-12) [Vit. B-12] 1,000 mcg PO DAILY tab RisperiDONE [RisperDAL] 0.5 mg PO 0900,1730 30 Days #60 tab Continue Doxazosin [Cardura] 4 mg PO HS sotalol 80 mg tablet 80 mg PO BID #90 tab dihydroxyaluminum sod carb 334 mg chewable tablet 668 mg PO DAILY PRN tab PRN Reason: Prn Orders Zestril (lisinopril) 40 mg tablet 40 mg PO DAILY tab Aldactone (spironolactone) 25 mg tablet 25 mg PO QAM #90 tab aspirin 325 mg tablet 325 mg PO DAILY #1 tab Glucophage (metformin) 1,000 mg tablet 1,000 mg PO BID #1 tab Discontinued Risperdal (risperidone) 0.25 mg tablet 0.25 mg PO BID #30 tab - Disposition 04 To [facility] Home/Facility - Dismissal Complete Discharge Instructions are:: Complete
[2018-04-05] MEDS: INSULIN ASPART 100unit/ml INJECTION SQ PRN (10:38)
== END 2018-04-05 14:25 | DRG 884 ==
LOC: ED 08:45 → GEN 11:10
PROVIDERS: ADMIT Psychiatry & Neurology Psychiatry; ATTEND Psychiatry & Neurology Psychiatry